=== PATIENT | female | born 1945 | race Caucasian/White ===

== ENCOUNTER 2023-06-03 13:38 | Inpatient (IN) | payer MEDICARE, SELFPAY ==
[2023-05-31 15:01] VITALS: BP 150/66
[2023-05-31 15:09] VITALS: BMI 16.3
[2023-05-31 15:45] LABS: % Basophils 0.4 % (0-2); % Eosinophils 0.9 % (0-6); % Immature Granulocytes 0.4 % (0-0.5); % Lymphocytes 15.5 % (20.5-51.1); % Monocytes 4.6 % (1.7-9.3); % Neutrophils 78.2 % (42.2-75.2); Absolute Eosinophils 0.1 10^3/uL (0-0.7); Absolute Lymphocytes 1.6 10^3/uL (1.2-3.4); Absolute Monocytes 0.5 10^3/uL (0.1-0.6); Absolute Neutrophils 8.2 10^3/uL (1.4-6.5); Hemoglobin 13.5 g/dL (12.0-16.0); Mean Corp Hgb Conc. 31.4 g/dL (33.0-37.0); Mean Corpuscular Hgb 30.3 pg (27.0-31.0); Mean Corpuscular Volume 96.6 fL (81.0-99.0); Mean Platelet Volume 10.2 fL (7.4-10.4); Nucleated Red Blood Cells % 0 %; Platelet Count 271 10^3/uL (130-400); Red Blood Cell Count 4.45 10^6/uL (4.20-5.40); Red Cell Dist. Width 13.2 % (11.5-14.5); White Blood Cell Count 10.4 10^3/uL (4.8-10.8)
[2023-05-31 15:48] LABS: ALT (SGPT) 20 U/L (0-35); AST (SGOT) 34 U/L (14-36); Acetaminophen < 10 ug/ml (10-30); Albumin 4.8 g/dl (3.5-5.0); Alkaline Phosphatase 78 U/L (38-126); Blood Urea Nitrogen 14 mg/dl (7-17); Calcium 8.9 mg/dl (8.4-10.2); Carbon Dioxide 30 mmol/L (22-30); Chloride 103 mmol/L (98-107); Estimated Creatinine Clearance 55 ml/min; Glucose 107 mg/dl (70-99); Salicylate < 1.0 mg/dl (2.0-20.0); Total Bilirubin 0.5 mg/dl (0.2-1.3); Total Protein 8.2 g/dl (6.3-8.2); eGFR > 60.00
[2023-05-31 15:58] LABS: Potassium 4.5 mmol/L (3.5-5.1); Sodium 138 mmol/L (135-145)
--- NOTE | 2023-05-31 16:17 | ED.GENMED ---
History of Present Illness
General
Chief Complaint: Dizziness
Source: patient and family
Exam Limitations: none
Time Seen by Provider: 05/31/23 16:04
Nursing documentation reviewed up to this point in time: agreed with
Travel History
Have you had any contact with someone who has COVID-19?: No
Do you have any symptoms of coronavirus? Fever > 100 degrees, chills, cough, shortness of breath, sore throat, loss of taste or smell, muscle aches, or headache?: No
History of Present Illness
History of Present Illness:
78-year-old female presents emergency department due to dizziness. She felt dizzy yesterday, and usually feels dizzy in the morning. She has had this intermittently over the past several months, but it has been worse for the past 1 to 2 days. She
came to crisis today because she made a comment that she wanted to end it all. She denies any thoughts of suicide at this time.
Past History
Past History
ED Past Medical History: COPD and Other (scleroderma, alphatripsen deficiency)
ED Past Surgical History: Other (Biopsy, eye surgeries)
Social History
Tobacco: Non-smoker
Alcohol: None
Drug: None
Personal:
Living: with family
Review of Systems
Review of Systems
Allergies reviewed?: Yes
All Other Systems: Not applicable
Constitutional: Reports no symptoms
EENT: Reports no symptoms
Respiratory: Reports no symptoms
Cardiac: Reports no symptoms
ABD/GI: Reports no symptoms
: Reports no symptoms
Musculoskeletal: Reports no symptoms
Skin: Reports no symptoms
Neurological: Reports dizzy
Endocrine: Reports no symptoms
Hematologic/Lymphatic: Reports no symptoms
Psychiatric: Denies suicidal (Denies)
Phy Exam
Physical Exam
Physical Exam:
Physical Exam
General: no apparent distress, not acutely ill
Neck: supple. no meningeal signs. normal posterior pharynx
Heart: s1/s2 regular rate and rhythm, no murmur. equal radial
pulses.
HEENT: Pupils equal round reactive to light, EOMI
Lungs: no acute respiratory distress. clear bilaterally
Abdomen: normal bowel sounds. not tender. no CVAT
Neuro: alert and oriented. no focal neurological deficits cranial nerves II through XII intact
Skin: no rash
Psychiatric: well kept. interactive and cooperative
Extremities: no edema. no calf tenderness. negative homans. good distal pulses
Scores
NIH Stroke Score
Level of Consciousness: 0 - Alert
LOC Questions: 0-Answers both correctly
LOC Commands: 0-Performs both correctly
Best Horizontal Gaze: 0-Normal
Visual [place]: 0=Normal, no visual loss
Facial Palsy: 0=Normal, symmetrical
Motor - Right Arm: 0=No drift 10 seconds
Motor - Left Arm: 0=No drift 10 seconds
Motor - Right Le-No drift 5 seconds
Motor - Left Le-No drift 5 seconds
Limb Ataxia: 0-Absent
Sensation: 0-Normal
Best Language: 0-No aphasia
Dysarthria: 0-Normal
Extinction and Inattention: 0-No abnormality
Total Score:: 0
Course
Orders/Labs/Results
Orders:
Orders
05/31/23 15:14
Acetaminophen Urgent
Complete Blood Count/With Diff Urgent
Comprehensive Metabolic Panel Urgent
Salicylate Urgent
05/31/23 16:16
Electrocardiogram (*1) Urgent
Reason for Study: Vertigo / Dizzy
EKG- Treatment ONCE
05/31/23 16:17
CT Head W/o Iv Contrast Urgent
Comment:
Reason For Exam: dizziness
05/31/23 20:21
Admit/Transfer Patient As Directed
Co-Sign Provider:
Level of Care: Observation services
Assign to:: Telemetry
Physician / Group: hussein gunderson
Diagnosis: acute dizziness concer vertigo vs cva tia
Reason for Telemetry: CVA/TIA
Date to Stop Telemetry: 06/03/23
Time to Stop Telemetry: 11:00
Reason for Hospitalization: acute dizziness concer vertigo vs cva tia
Code Status As Directed
Resuscitation Status: Full Code
Meclizine [Antivert] 12.5 mg PO Q8HPRN PRN
06/03/23 11:00
DC Protocol for Telemetry ONCE
Abnormal Lab Results
05/31/23
15:14
MCHC 31.4 L g/dL
(33.0-37.0)
Absolute Neuts (auto) 8.2 H 10^3/uL
(1.4-6.5)
Neutrophils % 78.2 H %
(42.2-75.2)
Lymphocytes % 15.5 L %
(20.5-51.1)
Glucose 107 H mg/dl
(70-99)
Salicylates < 1.0 L mg/dl
(2.0-20.0)
Acetaminophen < 10 L ug/ml
(10-30)
05/31/23 15:14
05/31/23 15:14
Vital Signs
Initial and Last Documented VS:
Initial Vital Signs
Temp Pulse Resp BP Pulse Ox
98.0 F 78 18 150/66 97
05/31/23 15:01 05/31/23 15:01 05/31/23 15:01 05/31/23 15:01 05/31/23 15:01
Last Documented Vital Signs
Temp Pulse Resp BP Pulse Ox
98.0 F 78 18 150/66 97
05/31/23 15:01 05/31/23 15:01 05/31/23 15:01 05/31/23 15:01 05/31/23 15:01
MDM/Problems Addressed
Differential Diagnosis Includes:
CVA, vertigo
MDM/Problems Addressed:
78-year-old female with dizziness, CT changes concerning for subacute infarct, discussed with neurology who recommends admission.
Chronic conditions affecting care:
Scleroderma
Acute Exacerbation and/or Progression of Chronic Illness:
Scleroderma
*Radiology
Radiology exam reviewed: radiology read reviewed (CT head shows decreased attenuation in anterior frontal right lobe)
*Pulse Oximetry
Patient hypoxic: no
*EKG
Interpreted by ED Provider?: Yes
EKG Intrepretation Date: 05/31/23
EKG Intrepretation Time: 16:34
Interpretation: normal
Comparison EKG: no changes
Heart Rate: 77
Rate: normal
Rhythm: sinus
[place]: normal axis
Interval: normal interval
QRS Pattern: normal QRS
Ischemia: no ischemia
*Automobile Parts Assembler Interpretation
Rate: normal
Interpretation: normal
Heart Rate: 78
Rhythm: sinus
*Critical Care Note
Total Time (30-74mins, 75-104mins- exclusive of procedures): Not Applicable
ED Attending Note
-
Portions of this chart may have been created with voice recognition software.� Occasional wrong word or��sound alike� substitutions may have occurred due to the inherent limitations of voice recognition software.
Discharge Plan
Departure
Patient Disposition: Admit
Date of Disposition: 05/31/23
Time of Disposition: 19:39
Admit to: Telemetry
Presentation/result/management discussed w/ accepting MD/DO: Hospitalist
Patient with high blood pressure during this ER visit?: Yes
Condition: Fair
Discharge Problem:
CVA (cerebral vascular accident)
Prescriptions:
No Action
B Complex Tablet Extended Release
1 tab PO DAILY
ondansetron HCl 4 mg tablet
4 mg PO DAILY PRN (Reason: nausea)
aspirin 81 mg Tablet,Delayed Release (Dr/Ec)
81 mg PO DAILY
ascorbic acid (vitamin C) [Vitamin C] 500 mg Tablet
500 mg PO DAILY
ibandronate 150 mg tablet
150 mg PO MONTHLY
cholecalciferol (vitamin D3) [Vitamin D3] 50 mcg (2,000 unit) Tablet
50 mcg PO DAILY
Referrals:
Sindhu Crouch MD [Family Provider] -
Interventions
Interventions:
*Risk Screen - Suicide Last Done: 05/31/23 15:01
*General Assessment Last Done: 05/31/23 15:01
*Neglect/Abuse Screening Last Done: 05/31/23 15:01
ED- Fall Risk Assessment Last Done: 05/31/23 15:09
*ED COVID-19 Vaccine History Last Done: 05/31/23 15:01
ED- Neurological Assessment Last Done: 05/31/23 15:10
ED Swallowing Screen Last Done: 05/31/23 16:00
--- NOTE | 2023-05-31 19:49 | HPS.HSE ---
Addendum entered and electronically signed by Anthony Abbott DO 05/31/23 21:04:
Patient seen and examined independently. Agree with findings and plan as set forth by KAJAL Brewer.
Patient is a 78y F with PMH significant for scleroderma, COPD and apparent dementia who presented to the ED with her for evaluation of dizziness and nausea. had called PCP office earlier today for Zofran rx for symptoms. Patient
has a prior h/o similar symptoms about 6 months ago that improved with meclizine.
At the time of my examination, patient cannot recall or state why she is in the hospital. She denies any dizziness. She states that she has had occasional nausea, but 'not that bad'.
She has ambulated here in the ED without apparent difficulty.
A CT scan was done which shows mild asymmetry in the frontal lobes concerning for possible subacute CVA.
Ass:
Dizziness / Vertigo
Abnormal CT Head
Dysconjugate Gaze (chronic)
COPD without Acute Exacerbation
Scleroderma
Senile Dementia
Depression
Plan:
Observe overnight for further evaluation and treatment.
PT / OT evaluations in the AM.
Meclizine PRN for now - should any symptoms recur.
CT scan noted - but abnormality is not consistent with any presenting symptoms.
Check MRI in AM.
Neuro evaluation.
ASA daily for now.
? if vision abnormality / dysconjugate gaze could be contributing to her issues - even though it is chronic.
Original Note:
Family Physician
-
Family Physician: Sindhu Crouch MD
Chief Complaint
-
Dizziness, depression in the a.m.
History of Present Illness
78-year-old female complaining of dizziness that has been worse over the past 1 to 2 days especially in the morning. Her states she woke up yesterday a.m. was complaining she was dizzy with the room spinning he gave her a Zofran and she
fell asleep. This evening while walking to have dinner she had the same episode he gave her an additional Zofran which did not seem to help. She reports she feels depressed in the a.m.'s but seems to improve in the afternoon. Her states
she had this 6 months ago and took a white pill which seemed to help. He believes it was meclizine. Patient denies any recent cold cough runny nose sneezing, sinus pressure, ear pressure, sore throat, chest pain, palpitations, shortness breath,
cough, abdominal pain, nausea, vomiting, diarrhea, urinary symptoms.
She is past medical history of COPD, scleroderma, alpha trypsin deficiency, chronic memory impairment, vertigo
Medical History
Past Medical History
Past Medical History: Reports Other
Additional Past Medical History:
COPD, scleroderma, alpha trypsin deficiency, chronic memory impairment, vertigo
Past Surgical History: Reports Other
Additional Past Surgical History:
Tonsillectomy, right knee arthroscopy
Social History
Tobacco: Non-smoker
Alcohol: None
Drug: None
Personal:
Living: With Family ( Oliverio)
Employment: Retired
Family History
Family History: Unable to Obtain
Allergies / Home Medications
Allergies reflects when Allergies were last updated in [facility] [employer] [facility] [employer].
Home Medications with original date entered in [employer] [facility] [employer] [facility] [employer]
Allergy/Medication List:
Allergies
Allergy/AdvReac Type Severity Reaction Status Date / Time
No Known Allergies Allergy Verified 12/23/19 11:42
Home Medications
ascorbic acid (vitamin C) 500 mg tablet (Vitamin C) 500 mg PO DAILY 05/31/23
aspirin 81 mg tablet,delayed release 81 mg PO DAILY 05/31/23
cholecalciferol (vitamin D3) 50 mcg (2,000 unit) tablet (Vitamin D3) 50 mcg PO DAILY 05/31/23
ibandronate 150 mg tablet 150 mg PO MONTHLY 05/31/23
ondansetron HCl 4 mg tablet 4 mg PO DAILY PRN nausea 05/31/23
vitamin B complex 1 tab PO DAILY 05/31/23
Review of Systems
-
History Source: Patient and Family ( Oliverio)
A 12 point ROS was completed and negative except as noted: Yes
Constitutional: Denies Fever or Fatigue
EENT: Denies Sore Throat or Runny Nose
Respiratory: Denies Cough or Trouble Breathing
Cardiac: Denies Chest Pain, Diaphoresis, Palpitations or Syncope
: Denies Dysuria, Frequency, Flank Pain, Incontinence or Difficulty Voiding
Musculoskeletal: Denies Joint Pain or Edema
Skin: Denies Itching or Rash
Neurological: Reports Dizzy; Denies Headache or Weakness
Endocrine: Reports No Symptoms
Hematologic/Lymphatic: Reports No Symptoms
Psych: Reports Calm
Physical Exam
Vital Signs
Vital Signs
Temp Pulse Resp BP Pulse Ox
98.0 F 78 18 150/66 97
05/31/23 15:01 05/31/23 15:01 05/31/23 15:01 05/31/23 15:01 05/31/23 15:01
Physical Exam
General: Comfortable and Conversant; No Pain, Fever or Chills
HEENT: NormoCephalic, Anicteric, PERRLA and [place] Conjunctivae
Respiratory: Clear; No Wheezes, Rales or Rhonchi
Cardiac: S1/S2 and Regular Rhythm; No Murmur, Rub, Gallop or Peripheral Edema
Breast: Deferred by me
GI: Soft, Non Tender, Non Distended, Normal Bowel Sounds and No Hepatosplenomegaly
Rectal: Deferred by Provider
Genito-urinary: Deferred by me
Musculoskeletal: No Clubbing, No Cyanosis and No Edema
Skin: Warm and Dry; No Rash
Neuro: Awake, Alert, Oriented (To name and confused about dates, time of events, place states she has memory impairment), Cranial Nerves Intact and No Sensory Deficits; No Slurred Speech, Facial Droop or Tremors
Psych: Calm
Laboratory Results
-
05/31/23 15:14
05/31/23 15:14
Laboratory Results
Total Bilirubin 0.5 mg/dl (0.2-1.3) 05/31/23 15:14
AST 34 U/L (14-36) 05/31/23 15:14
ALT 20 U/L (0-35) 05/31/23 15:14
Alkaline Phosphatase 78 U/L (38-126) 05/31/23 15:14
Impression/Plan
-
Impression/plan:
Observation telemetry
#Acute dizziness likely vertigo concern for TIA CVA
-Consult neuro
-MRI brain
-Continue aspirin 81 mg daily pt takes daily
-Check lipid profile, HgbA1c
-Meclizine 25 mg as needed dizziness 3 times daily
-Consult PT/OT/case management
CT head:
1. Asymmetric decreased attenuation in the anterior right frontal lobe age indeterminant subacute infarct cannot be excluded
2. Moderate diffuse volume loss moderate leukoaraiosis
EKG: NSR 83 bpm, QTc 415 MS
#Chronic memory impairment�undiagnosed�moderate
-Patient oriented to name and place extremely forgetful cannot recall events of today
#New Depression
Symptoms seem to occur in the a.m.
-No current suicidal ideation
-Recommend follow-up with PCP, has crisis number
-Will add Remeron 15 mg at bedtime
#COPD�no acute exacerbation
- no current med
#Scleroderma hx
#Hx alpha trypsin deficiency
#Osteoporosis
Continue ibandronate monthly, vitamin D3 daily
DVT prophylaxis
SCDs
Full code per patient with Oliverio at bedside
[2023-05-31 20:42] VITALS: BP 144/82
[2023-05-31 21:48] VITALS: BP 183/73; BMI 16.6
[2023-05-31 22:40] VITALS: BP 150/70
[2023-05-31 23:10] VITALS: BP 146/70
[2023-06-01] VITALS (8 sets, daily range): BP systolic 117–164; BP diastolic 49–79; PULSE 73–77; O2SAT 98–99; BMI 16.6
--- NOTE | 2023-06-01 06:09 | PTCARENOTE ---
Late entry: patient received to floor, on tele box #10. Oriented to room and floor routines, adm assessment complete, call rose within reach. NIH score 0.
[2023-06-01 06:47] LABS: % Basophils 0.4 % (0-2); % Eosinophils 3.2 % (0-6); % Immature Granulocytes 0.3 % (0-0.5); % Lymphocytes 33.7 % (20.5-51.1); % Monocytes 8.1 % (1.7-9.3); % Neutrophils 54.3 % (42.2-75.2); Absolute Eosinophils 0.2 10^3/uL (0-0.7); Absolute Lymphocytes 2.4 10^3/uL (1.2-3.4); Absolute Monocytes 0.6 10^3/uL (0.1-0.6); Absolute Neutrophils 3.9 10^3/uL (1.4-6.5); Hematocrit 37.2 % (37.0-47.0); Mean Corp Hgb Conc. 32.3 g/dL (33.0-37.0); Mean Corpuscular Hgb 30.1 pg (27.0-31.0); Mean Corpuscular Volume 93.2 fL (81.0-99.0); Mean Platelet Volume 10.4 fL (7.4-10.4); Nucleated Red Blood Cells % 0 %; Platelet Count 245 10^3/uL (130-400); Red Blood Cell Count 3.99 10^6/uL (4.20-5.40); Red Cell Dist. Width 13.1 % (11.5-14.5); White Blood Cell Count 7.2 10^3/uL (4.8-10.8)
[2023-06-01 07:18] LABS: Blood Urea Nitrogen 14 mg/dl (7-17); Calcium 8.7 mg/dl (8.4-10.2); Carbon Dioxide 30 mmol/L (22-30); Chloride 102 mmol/L (98-107); Estimated Creatinine Clearance 54 ml/min; Glucose 86 mg/dl (70-99); HDL Cholesterol 58 mg/dl; LDL Cholesterol, Calculated 108 mg/dl; Potassium 3.9 mmol/L (3.5-5.1); Sodium 140 mmol/L (135-145); Total Cholesterol 182 mg/dl (50-199); Triglyceride 80 mg/dl (10-149); Very Low Density Lipoprotein 16 mg/dl (0-30); eGFR > 60.00
[2023-06-01 07:33] LABS: VerifyNow Aspirin 493 ARU
--- NOTE | 2023-06-01 07:51 | CON.NEURO ---
Consultation
Order
Date of Consultation: 06/01/23
Reason for Consult: Stroke
CC: dizziness
HPI: This is a 78-year-old woman who presented to [facility] on [facility], [facility]23 with dizziness and nausea. Ms. Mayo endorses intermittent dizziness (difficult to differentiate vertigo or lightheadedness based described) with associated
nausea that she has been on ondansetron for. No reports of headache, change in vision, motor or sensory deficits
Mr. Mayo states that his has been forgetful. She has never driven or leaned how to use computer or cell phone. She is able to cook, manage her finances and medication administration with no concerns. She was reportedly tested negative for
HTT gene.
there is a family history of Elana's disease
Endorses she reports that her dizziness has resolved since her arrival at the hospital, and she is no longer experiencing nausea. Ms. Oliveira has a family history of Tyrrell's disease, but she has been tested and does not carry the gene. She denies
any difficulties with memory or mathematics but admits to occasionally having trouble finding the right words.
The patient has a history of a left lazy eye since and denies any recent headaches. She has seen multiple eye doctors but has not undergone any eye surgeries or had cataracts. Ms. Oliveira has experienced a fall in the past due to knee issues,
which have worsened over the past year.
ER VS: 150/66-183/73, 78, afebrile.
EKG�normal sinus rhythm, QTc�[address] head�questionable right frontal lobe infarct, prominent bifrontal atrophy, and moderate leukoaraiosis.
PDMP:none
Labs: Glucose�107, normal WBCs, sodium, creatinine, LDL�108,
PMH: scleroderma, Alpha-1 antitrypsin deficiency/COPD, osteoporosis, vitamin D deficiency,
PSH: R TKA, tonsillectomy
SH: , retired, non-smoker,
FH: Elana disease in maternal uncles
All:NKDA
ROS:Constitutional: Negative. Negative for chills, fever and unexpected weight change.
HENT: Negative for ear pain, hearing loss, tinnitus and trouble swallowing.
Eyes: Negative. Negative for photophobia, pain and visual disturbance.
Respiratory: Negative for cough, choking and shortness of breath.
Cardiovascular: Negative for chest pain, palpitations and leg swelling.
Gastrointestinal: Negative for abdominal pain and vomiting.
Endocrine: Negative. Negative for cold intolerance.
Genitourinary: Negative for dysuria, flank pain and urgency.
Musculoskeletal: Positive for right knee pain.
Skin: Negative for rash.
Allergic/Immunologic: Negative. Negative for immunocompromised state.
Neurological: Positive for short-term memory change, trouble finding the right words.
Psychiatric/Behavioral: Negative for behavioral problems, confusion and hallucinations.
General: Well developed. In no acute distress.
Cardio: Regular rate and rhythm without murmur. Extremities are without cyanosis or edema.
Neuro:
Mental Status: Alert, oriented to person, place, month, year. Mild expressive aphasia. Normal attention and recall. Good fund of knowledge. Follows complex requests across the midline. Comprehension, naming, and repetition intact.
Cranial Nerves: L exocoria on primary gaze. Pupils are equally round and reactive to light. EOMs full, except for L adduction. Visual sorto full to confrontation. No ptosis. No nystagmus. V1-V3 intact to light touch and pinprick bilaterally,
symmetric. Face symmetric. Impaired hearing AU. The palate elevated well. SCMs and traps 5/5. Tongue midline. No dysarthria.
Motor: Normal bulk and tone. No pronator or arm drift. Strength 5/5 throughout. No clonus.
Reflexes: 3+ throughout the upper extremities and knees. Plantar responses flexor bilaterally. As 2 g bilaterally.
Sensory: Normal vibration at the toes
Coordination: No dysmetria or tremor.
Gait: deferred
Assessment and Plan:
I. Questionable right frontal lobe infarct
II. MCI with bifrontal atrophy.
III. Dizziness
-Fall precautions
-Please obtain orthostatic vital signs
-PT
-Please check vitamin B12, TFTs,
-Meclizine 25 mg every 8 hours as needed for
-Brain MRI without maritza
I personally reviewed all radiology and labs along with past medical records pertinent to current medical problems. Total time spent in patient care is 60 minutes.
Thank you for allowing us to participate in the care of this patient. We will continue to follow. Please do not hesitate to contact us with any questions or concerns.
Subjective/Objective
Subjective Data
Date of Service: June 01, 2023
Objective Data
Vital Signs
Temp Pulse Resp BP Pulse Ox
36.6 C 77 16 154/72 100
06/01/23 02:59 06/01/23 02:59 06/01/23 02:59 06/01/23 02:59 06/01/23 02:59
Lab Results
06/01/23 06:25
06/01/23 06:25
Sodium 140 mmol/L (135-145) 06/01/23 06:25
Potassium 3.9 mmol/L (3.5-5.1) 06/01/23 06:25
BUN 14 mg/dl (7-17) 06/01/23 06:25
Glucose 86 mg/dl (70-99) 06/01/23 06:25
Calcium 8.7 mg/dl (8.4-10.2) 06/01/23 06:25
LDL Cholesterol, Calc 108 mg/dl 06/01/23 06:25
Patient Allergies
No Known Allergies Allergy (Verified 12/23/19 11:42)
Medications
-
Active Medications
Generic Name Dose Route Start Last Admin
Trade Name Freq PRN Reason Stop Dose Admin
Acetaminophen 650 mg 05/31/23 21:36
Acetaminophen 650 Mg Rectal Suppository RECTAL 06/28/23 21:35
Q4HPRN PRN
WEIR, mild pain, or temp >100.4F
Acetaminophen 650 mg 05/31/23 21:36
Acetaminophen 325 Mg Tablet PO 06/28/23 21:35
Q4HPRN PRN
WEIR, mild pain, or temp >100.4F
Aspirin 81 mg 06/01/23 08:00
Aspirin 81 Mg (Enteric Coated) Tablet PO 06/29/23 07:59
DAILY RUFINA
Cholecalciferol 50 mcg 06/01/23 08:00
Cholecalciferol (Vitamin D3) 50 Mcg Tablet (2,000 Units) PO 06/29/23 07:59
DAILY RUFINA
Meclizine HCl 12.5 mg 05/31/23 20:21
Meclizine 12.5 Mg Tablet PO 06/28/23 20:20
Q8HPRN PRN
dizziness
Ondansetron HCl 4 mg 05/31/23 21:36
Ondansetron 4 Mg Tablet PO 06/28/23 21:35
DAILYPRN PRN
nausea
Vitamin B Complex/Vitamin C 1 caplet 06/01/23 08:00
Vitamin B Complex With Vitamin C Caplet PO 06/29/23 07:59
DAILY RUFINA
Home Medications
Medication Instructions Recorded
ascorbic acid (vitamin C) 500 mg 500 mg PO DAILY 05/31/23
tablet (Vitamin C)
aspirin 81 mg tablet,delayed 81 mg PO DAILY 05/31/23
release
cholecalciferol (vitamin D3) 50 50 mcg PO DAILY 05/31/23
mcg (2,000 unit) tablet (Vitamin
D3)
ibandronate 150 mg tablet 150 mg PO MONTHLY 05/31/23
ondansetron HCl 4 mg tablet 4 mg PO DAILY PRN nausea 05/31/23
vitamin B complex 1 tab PO DAILY 05/31/23
[2023-06-01] MEDS: B COMPLEX w/VITAMIN C 1 CAPLET PO (08:10)
[2023-06-01] MEDS: ASPIR LOW (ENTERIC COATED) 81 MG PO (08:10)
[2023-06-01] MEDS: VITAMIN D3 (cholecalciferol) 50 MCG PO (08:10)
[2023-06-01 08:53] LABS: Glycohemoglobin (HgbA1c) 5.4 % (4.0-5.6)
--- NOTE | 2023-06-01 09:53 | W.PN.HOSP.TC ---
Today's Communication/Plan
-
.
Assessment / Plan
Assessment / Plan
Physical Exam
General: Comfortable and Conversant; No Pain, Fever or Chills
HEENT: Normocephalic, Anicteric, PERRLA and [place] Conjunctivae
Respiratory: Clear; No Wheezes, Rales or Rhonchi
Cardiac: S1/S2
Breast: Deferred by me
GI: Soft, Non Tender, Non Distended,
Rectal: Deferred by Provider
Genito-urinary: NO Chin
Musculoskeletal: No Clubbing, No Cyanosis and No Edema
Skin: Warm and Dry; No Rash
Neuro: Awake, Alert, Oriented (To name and confused about dates, time of events, place states she has memory impairment), forgetful.
Psych: Calm
#Acute dizziness likely vertigo concern for TIA CVA
-Consult neuro
-MRI brain
-Continue aspirin 81 mg daily pt takes daily
-Lipid profile showed total cholesterol 182, LDL 108, HDL 58, triglyceride 80. HgbA1c 5.4
-Meclizine 25 mg as needed dizziness 3 times daily
-Consult PT/OT/case management
� � � � ��CT head:
� � � � � 1.� Asymmetric decreased attenuation in the anterior right frontal lobe age indeterminant subacute infarct cannot be excluded
� � � � � 2.� Moderate diffuse volume loss moderate leukoaraiosis
�� � � ���EKG:�NSR 83 bpm, QTc 415 MS
#Chronic memory impairment�undiagnosed�moderate
-Patient oriented to name and place extremely forgetful cannot recall events of today
#New Depression
Symptoms seem to occur in the a.m.
-No current suicidal ideation
-Recommend follow-up with PCP, has crisis number
#COPD�no acute exacerbation
�- no current med
#Scleroderma hx
#Hx alpha trypsin deficiency
#Osteoporosis
Continue ibandronate monthly, vitamin D3 daily
DVT prophylaxis
SCDs
�Total time spent to see the patient, examine the patient on the floor, review data and lab results, discuss treatment plan with the patient, nursing staff around 55 minutes
Anticipated Discharge: Within 24 hours
Subjective/Interval History
-
Date of Service: June 01, 2023
No pain issues
no fevers
less dizzy
Objective Data
-
Labs:
Laboratory Results
06/01/23
06:25
WBC 7.2
Hgb 12.0
Hct 37.2
Plt Count 245
Sodium 140
Potassium 3.9
Chloride 102
Carbon Dioxide 30
BUN 14
Creatinine 0.6
Glucose 86
Calcium 8.7
Vital Signs:
Vital Signs
Temp Pulse Resp BP Pulse Ox
98.1 F 77 18 164/79 99
06/01/23 07:00 06/01/23 07:00 06/01/23 07:00 06/01/23 07:00 06/01/23 07:00
I&O
05/31/23 06/01/23 06/02/23
06:59 06:59 06:59
Intake Total 240 / 240
Balance 240 / 240
--- NOTE | 2023-06-01 10:01 | PTOTSP ---
Speech Therapy
Presentation: Patient was partially oriented and willing to participate. Patient's speech and language appeared to be WNL. Senile dementia noted.
Swallowing Function: LIQUIFIED NATURAL GAS SPECIALIST observed patient with several bites of cracker and sips of thin liquids in which patient appeared to tolerate as she did not exhibit any overt clinical s/sx of aspiration or difficulty with mastication. Patient denied any
dysphagia complaints.
Per RN, patient tolerated medications whole with thin liquids.
Recommendations:
1) Regular consistency solids and thin liquids
2) Standard aspiration precautions
3) Medications as tolerated
Plan: LIQUIFIED NATURAL GAS SPECIALIST will sign off at this time as patient seems to be functioning at her baseline function. Please re-consult if clinically indicated.
--- NOTE | 2023-06-02 02:54 | PTCARENOTE ---
Pt removed tele monitor and refuses to let staff to place back on. CUSTOMER SERVICE REPRESENTATIVE TEACHER BM aware, assessed need via flow sheet, tele monitor discontinued.
[2023-06-02 06:58] LABS: Hematocrit 36.8 % (37.0-47.0); Mean Corp Hgb Conc. 32.6 g/dL (33.0-37.0); Mean Corpuscular Hgb 30.1 pg (27.0-31.0); Mean Corpuscular Volume 92.2 fL (81.0-99.0); Mean Platelet Volume 10.4 fL (7.4-10.4); Platelet Count 239 10^3/uL (130-400); Red Blood Cell Count 3.99 10^6/uL (4.20-5.40); White Blood Cell Count 7.9 10^3/uL (4.8-10.8)
[2023-06-02 07:06] LABS: Blood Urea Nitrogen 21 mg/dl (7-17); Calcium 8.8 mg/dl (8.4-10.2); Carbon Dioxide 29 mmol/L (22-30); Chloride 104 mmol/L (98-107); Estimated Creatinine Clearance 47 ml/min; Glucose 92 mg/dl (70-99); Potassium 4.5 mmol/L (3.5-5.1); Sodium 141 mmol/L (135-145); eGFR > 60.00
[2023-06-02] MEDS: B COMPLEX w/VITAMIN C 1 CAPLET PO (07:37)
[2023-06-02] MEDS: VITAMIN D3 (cholecalciferol) 50 MCG PO (07:37)
[2023-06-02] MEDS: ASPIR LOW (ENTERIC COATED) 81 MG PO (07:37)
[2023-06-02 08:20] VITALS: BP 126/76; BP 127/77; BP 135/58; PULSE 75; PULSE 89; PULSE 97
[2023-06-02 11:11] VITALS: BP 134/59
--- NOTE | 2023-06-02 11:40 | W.PN.NEURO.1 ---
Today's Communication / Plan
-
.
Subjective/Objective
Subjective Data
Date of Service: June 02, 2023
24-hour events: Normotensive, afebrile. Ms. Rosario reports no complaints.
Brain MRI wo maritza(06/02/2023)-right frontal edema with associated with the area of restricted diffusion which do not have a standard ADC image response. Moderate diffuse volume loss
Carotid Doppler ultrasound�no evidence of hemodynamically significant stenosis.
LDL 108, hemoglobin A1c�5.4
PMH: scleroderma, Alpha-1 antitrypsin deficiency/COPD, osteoporosis, vitamin D deficiency,
PSH: R TKA, tonsillectomy
SH: , retired, non-smoker,
FH: [place] disease in maternal uncles
All:NKDA
ROS:Constitutional: Negative. Negative for chills, fever and unexpected weight change.
HENT: Negative for ear pain, hearing loss, tinnitus and trouble swallowing.
Eyes: Negative. Negative for photophobia, pain and visual disturbance.
Respiratory: Negative for cough, choking and shortness of breath.
Cardiovascular: Negative for chest pain, palpitations and leg swelling.
Gastrointestinal: Negative for abdominal pain and vomiting.
Endocrine: Negative. Negative for cold intolerance.
Genitourinary: Negative for dysuria, flank pain and urgency.
Musculoskeletal: Positive for right knee pain.
Skin: Negative for rash.
Allergic/Immunologic: Negative. Negative for immunocompromised state.
Neurological: Positive for short-term memory change, trouble finding the right words.
Psychiatric/Behavioral: Negative for behavioral problems, confusion and hallucinations.
�
�
General: Well developed. In no acute distress.
Cardio: Regular rate and rhythm without murmur. Extremities are without cyanosis or edema.
Neuro:
Mental Status: Alert, oriented to person, place, month, year.� Mild expressive aphasia.� Normal attention and recall.� Good fund of knowledge. Follows complex requests across the midline.� Comprehension, naming, and repetition intact.
Cranial Nerves:� L exocoria on primary gaze. Pupils are equally round and reactive to light.� EOMs full, except for L adduction.� Visual sorto full to confrontation.� No ptosis.� No nystagmus.� V1-V3 intact to light touch and pinprick bilaterally,
symmetric.� Face symmetric.� Impaired hearing AU.� The palate elevated well.� SCMs and traps 5/5.� Tongue midline.� No dysarthria.
Motor:� � � � Normal bulk and tone.� No pronator or arm drift.� Strength 5/5 throughout. No clonus.
Reflexes: � � � � � � 3+ throughout the upper extremities and knees. � Plantar responses flexor bilaterally.� As 2 g bilaterally.
Sensory: � � Normal vibration at the toes
Coordination: No dysmetria or tremor.�
Gait: � � � � � deferred
Assessment and Plan:
�
�I. Right frontal edema with diffusion restriction. Rule out MANAGER CRISIS neoplasm.
II.� MCI with bifrontal atrophy.
III.� Multifactorial encephalopathy
-Fall precautions
-Continue aspirin 81 mg QD
-Brain MRI with maritza
-Please check vitamin B12, TFTs, ESR/CRP
-DVT prophylaxis
I personally reviewed all radiology and labs along with past medical records pertinent to current medical problems. Total time spent in patient care is 35 minutes.
�
Thank you for allowing us to participate in the care of this patient. We will continue to follow. Please do not hesitate to contact us with any questions or concerns
Objective Data
Vital Signs
Temp Pulse Resp BP Pulse Ox
36.6 C 78 18 134/59 98
06/02/23 11:11 06/02/23 11:11 06/02/23 11:11 06/02/23 11:11 06/02/23 11:11
Lab Results
06/02/23 06:32
06/02/23 06:32
Sodium 141 mmol/L (135-145) 06/02/23 06:32
Potassium 4.5 mmol/L (3.5-5.1) 06/02/23 06:32
BUN 21 mg/dl (7-17) H 06/02/23 06:32
Glucose 92 mg/dl (70-99) 06/02/23 06:32
Calcium 8.8 mg/dl (8.4-10.2) 06/02/23 06:32
LDL Cholesterol, Calc 108 mg/dl 06/01/23 06:25
Patient Allergies
No Known Allergies Allergy (Verified 12/23/19 11:42)
[2023-06-02] MEDS: PLAVIX 75 MG PO (12:10)
[2023-06-02 12:54] LABS: C-Reactive Protein < 5.00 mg/L (0.0-10.00)
[2023-06-02 13:01] LABS: TSH Reflex To Free T4 1.62 uIU/ml (0.47-4.68)
[2023-06-02 13:05] LABS: Erythrocyte Sed Rate 18 mm/hour (0-20)
[2023-06-02 13:20] LABS: Vitamin B12 641 pg/ml (239-931)
--- NOTE | 2023-06-02 14:29 | W.PN.HOSP.TC ---
Today's Communication/Plan
-
likely dc in am
Assessment / Plan
Assessment / Plan
Physical Exam
General: Comfortable and Conversant; No Pain, Fever or Chills
HEENT: Normocephalic, Anicteric, PERRLA and [place] Conjunctivae
Respiratory: Clear; No Wheezes, Rales or Rhonchi
Cardiac: S1/S2
Breast: no lump/ tenderness or nipple discharge
GI: Soft, Non Tender, Non Distended,
Rectal: Deferred by Provider
Genito-urinary: NO Chin
Musculoskeletal: No Clubbing, No Cyanosis and No Edema
Skin: Warm and Dry; No Rash
Neuro: Awake, Alert, Oriented (To name and confused about dates, time of events, place states she has memory impairment), she followed commands.
Psych: Calm, pleasant.
#Acute dizziness likely vertigo concern for TIA CVA
- She denies dizziness.
-MRI brain was reviewed with radiologist, will repeat with contrast
-Continue aspirin 81 mg daily pt takes daily
-Lipid profile showed total cholesterol 182, LDL 108, HDL 58, triglyceride 80. HgbA1c 5.4
-Meclizine 25 mg as needed dizziness 3 times daily
-Consult PT/OT/case management
� � � � ��CT head:
� � � � � 1.� Asymmetric decreased attenuation in the anterior right frontal lobe age indeterminant subacute infarct cannot be excluded
� � � � � 2.� Moderate diffuse volume loss moderate leukoaraiosis
�� � � ���EKG:�NSR 83 bpm, QTc 415 MS
#Chronic memory impairment�undiagnosed�moderate
-Patient oriented to name and place extremely forgetful cannot recall events of today
#New Depression
Symptoms seem to occur in the a.m.
-No current suicidal ideation
-Recommend follow-up with PCP, has crisis number
#COPD�no acute exacerbation
�- no current med
#Scleroderma hx
#Hx alpha trypsin deficiency
#Osteoporosis
Continue ibandronate monthly, vitamin D3 daily
DVT prophylaxis
SCDs
�Total time spent to see the patient, examine the patient on the floor, review data and lab results, discuss treatment plan with the patient, , radiologist, nursing staff around 55 minutes
Anticipated Discharge: Within 24 hours
Subjective/Interval History
-
Date of Service: June 02, 2023
No pain issues
no chest pain or sob
Objective Data
-
Labs:
Laboratory Results
06/02/23
06:32
WBC 7.9
Hgb 12.0
Hct 36.8 L
Plt Count 239
Sodium 141
Potassium 4.5
Chloride 104
Carbon Dioxide 29
BUN 21 H
Creatinine 0.7
Glucose 92
Calcium 8.8
Vital Signs:
Vital Signs
Temp Pulse Resp BP Pulse Ox
97.8 F 78 18 134/59 98
06/02/23 11:11 06/02/23 11:11 06/02/23 11:11 06/02/23 11:11 06/02/23 11:11
I&O
06/01/23 06/02/23 06/03/23
06:59 06:59 06:59
Intake Total 240 / 240 880 / 880
Balance 240 / 240 880 / 880
[2023-06-02 15:58] VITALS: BP 143/52
[2023-06-02] MEDS: LIPITOR 40 MG PO (17:11)
[2023-06-02] MEDS: MELATONIN 5 MG PO (22:41)
[2023-06-02 23:40] VITALS: BP 146/68
[2023-06-03 07:00] VITALS: BP 141/69
[2023-06-03] MEDS: ASPIR LOW (ENTERIC COATED) 81 MG PO (07:10)
[2023-06-03] MEDS: VITAMIN D3 (cholecalciferol) 50 MCG PO (07:10)
[2023-06-03] MEDS: B COMPLEX w/VITAMIN C 1 CAPLET PO (07:10)
--- NOTE | 2023-06-03 11:34 | W.PN.NEURO.1 ---
Today's Communication / Plan
-
.
Subjective/Objective
Subjective Data
Date of Service: June 03, 2023
24-hour events: Normotensive, afebrile.� Ms. Mayo reports no complaints.
Brain MRI with maritza(06/02/2023)-numerous small foci of increased FLAIR signal throughout, including a small focus in the right cerebellar hemisphere , a small focus within the region of the left anterior thalamus/posterior limb of the left internal
capsule, and the lesion within the right frontal lobe�' which appear to have a thin peripheral rim of enhancement'.
LDL 108, hemoglobin A1c�5.4
CRP�normal
PMH: scleroderma, Alpha-1 antitrypsin deficiency/COPD, osteoporosis, vitamin D deficiency,
PSH: R TKA, tonsillectomy
SH: , retired, non-smoker,
FH: [place] disease in maternal uncles
All:NKDA
ROS:Constitutional: Negative. Negative for chills, fever and unexpected weight change.
HENT: Positive for hearing chronic impairment.
Eyes: Negative. Negative for photophobia, pain and visual disturbance.
Respiratory: Negative for cough, choking and shortness of breath.
Cardiovascular: Negative for chest pain, palpitations and leg swelling.
Gastrointestinal: Negative for abdominal pain and vomiting.
Endocrine: Negative. Negative for cold intolerance.
Genitourinary: Negative for dysuria, flank pain and urgency.
Musculoskeletal: Positive for right knee pain.
Skin: Negative for rash.
Allergic/Immunologic: Negative. Negative for immunocompromised state.
Neurological: Positive for short-term memory change, trouble finding the right words.
Psychiatric/Behavioral: Negative for behavioral problems, confusion and hallucinations.
�
�
General: Well developed. In no acute distress.
Cardio: Regular rate and rhythm without murmur. Extremities are without cyanosis or edema.
Neuro:
Mental Status: Alert, oriented to person, place, month, year.� Mild expressive aphasia.� Normal attention and recall.� Good fund of knowledge. Follows complex requests across the midline.� Comprehension, naming, and repetition intact.
Cranial Nerves:� L>R exocoria on primary gaze. Pupils are equally round and reactive to light.� EOMs full, except for L adduction.� Visual sorto full to confrontation.� No ptosis.� No nystagmus.� V1-V3 intact to light touch and pinprick
bilaterally, symmetric.� Face symmetric.� Impaired hearing AU.� The palate elevated well.� SCMs and traps 5/5.� Tongue midline.� No dysarthria.
Motor:� � � � Normal bulk and tone.� No pronator or arm drift.� Strength 5/5 throughout. No clonus.
Reflexes: � � � � � � 3+ throughout the upper extremities and knees. � Plantar responses flexor bilaterally.� As 2 g bilaterally.
Sensory: � � Normal vibration at the toes
Coordination: No dysmetria or tremor.�
Gait: � � � � � deferred
Assessment and Plan:
�
�I.� MARIONETTE PERFORMER embolic phenomena. Differential diagnosis includes vascular versus neoplastic less likely infectious etiology
II.� MCI with bifrontal atrophy.
III.� Multifactorial encephalopathy
-Fall precautions
-Continue aspirin 81 mg QD
-Cardiology consult LEILANI/loop monitoring
-CT chest, abdomen and pelvis
-DVT prophylaxis
I personally reviewed all radiology and labs along with past medical records pertinent to current medical problems. Total time spent in patient care is 35 minutes.
�
Objective Data
Vital Signs
Temp Pulse Resp BP Pulse Ox
36.6 C 77 16 141/69 96
06/03/23 07:00 06/03/23 07:00 06/03/23 07:00 06/03/23 07:00 06/03/23 07:00
Lab Results
06/02/23 06:32
06/02/23 06:32
Sodium 141 mmol/L (135-145) 06/02/23 06:32
Potassium 4.5 mmol/L (3.5-5.1) 06/02/23 06:32
BUN 21 mg/dl (7-17) H 06/02/23 06:32
Glucose 92 mg/dl (70-99) 06/02/23 06:32
Calcium 8.8 mg/dl (8.4-10.2) 06/02/23 06:32
LDL Cholesterol, Calc 108 mg/dl 06/01/23 06:25
Vitamin B12 641 pg/ml (937-931) 06/02/23 06:32
Patient Allergies
No Known Allergies Allergy (Verified 12/23/19 11:42)
Home Medications
-
Home Medications
ascorbic acid (vitamin C) 500 mg tablet (Vitamin C) 500 mg PO DAILY Supplement 05/31/23
aspirin 81 mg tablet,delayed release 81 mg PO DAILY Blood Clot Prevention/Tx 05/31/23
cholecalciferol (vitamin D3) 50 mcg (2,000 unit) tablet (Vitamin D3) 50 mcg PO DAILY Supplement 05/31/23
ibandronate 150 mg tablet 150 mg PO MONTHLY malignancy 05/31/23
ondansetron HCl 4 mg tablet 4 mg PO DAILY PRN nausea 05/31/23
vitamin B complex 1 tab PO DAILY Supplement 05/31/23
--- NOTE | 2023-06-03 12:28 | W.PN.HOSP.TC ---
Today's Communication/Plan
-
.
Assessment / Plan
Assessment / Plan
Physical Exam
General: Comfortable and Conversant; No Pain, Fever or Chills
HEENT: Normocephalic, Anicteric, PERRLA and [place] Conjunctivae
Respiratory: Clear; No Wheezes, Rales or Rhonchi
Cardiac: S1/S2
Breast: no lump/ tenderness or nipple discharge
GI: Soft, Non Tender, Non Distended,
Rectal: Deferred by Provider
Genito-urinary: NO Chin
Musculoskeletal: No Clubbing, No Cyanosis and No Edema
Skin: Warm and Dry; No Rash
Neuro: Awake, Alert, Oriented (To name and confused about dates, time of events, place states she has memory impairment), she followed commands.
Psych: Calm, pleasant.
#�Non specific complaints of nausea/ dizziness
Differential diagnosis includes vascular versus neoplastic less likely infectious etiology
- She denies dizziness at present time.
-MRI brain was reviewed with radiologist, multiple rounded foci, small, which appear to have a thin peripheral rim of enhancement. One of these lesions in the right frontal region has associated white matter edema. DDX metastatic disease/ atypical
presentation of multiple foci of acute to subacute infarction.
-Continue aspirin 81 mg daily pt takes daily
-Lipid profile showed total cholesterol 182, LDL 108, HDL 58, triglyceride 80. HgbA1c 5.4
-Meclizine 25 mg as needed dizziness 3 times daily
Scan of chest, abdomen, pelvis to rule out primary cancer?
Cardiology evaluation for LEILANI
-Consult PT/OT/case management
Appreciate neurology and cardiology input
# Confusion over night
could be related to underlying cognitive impairment/dementia?
will monitor
med sitter
she was alert this morning, followed commands.
#Chronic memory impairment�undiagnosed�moderate
-Patient oriented to name and place extremely forgetful cannot recall events of today
#New Depression
Symptoms seem to occur in the a.m.
-No current suicidal ideation
-Recommend follow-up with PCP, has crisis number
#COPD�no acute exacerbation
�- no current med
#Scleroderma hx
#Hx alpha trypsin deficiency
#Osteoporosis
Continue ibandronate monthly, vitamin D3 daily
DVT prophylaxis
SCDs
�Total time spent to see the patient, examine the patient on the floor, review data and lab results, discuss treatment plan with the patient, , radiologist, nursing staff around 57 minutes
Anticipated Discharge: 24 - 48 hours
Subjective/Interval History
-
Date of Service: June 03, 2023
No headache
no abd pain
no chest pain
nurse, confusion over night
Objective Data
-
Vital Signs:
Vital Signs
Temp Pulse Resp BP Pulse Ox
97.9 F 77 16 141/69 96
06/03/23 07:00 06/03/23 07:00 06/03/23 07:00 06/03/23 07:00 06/03/23 07:00
I&O
06/02/23 06/03/23 06/04/23
06:59 06:59 06:59
Intake Total 880 / 880 620 / 620
Balance 880 / 880 620 / 620
--- NOTE | 2023-06-03 14:58 | CON.CAR ---
Consultation
Consultation Request
Date/Time Consultation Requested: 06/03/2023 at 0930
Date/Time Consultation Performed: 06/03/2023 at 1100
Requesting Provider: Debbie Keith MD
Performing Provider: Yuniel Nick DO
Reason for Consultation: Dizziness, TIA
Medical History
-
Chief Complaint: Dizziness
History of Present Illness:
Patient is a pleasant 78-year-old female with a past medical history significant for scleroderma, alpha-1 antitrypsin deficiency, COPD, osteoporosis, vitamin D deficiency, depression/anxiety who presented with worsening/intermittent dizziness and
nausea and underwent evaluation for stroke. Patient was noted on brain MRI with gadolinium on 06/02/2023 to have numerous small foci of increased FLAIR signal throughout including a small focus in the right cerebellar hemisphere and a small focus
within the region of left anterior thalamus/posterior limb of the left anterior capsule and lesion within the right frontal lobe with peripheral rim enhancement commented by radiology as possible metastatic disease cannot rule out embolus (possibly
but less likely infectious). In discussion with patient, she reports that she has intermittent dizziness when changing position. She currently reports that her dizziness has resolved. Patient denies any chest pain, shortness of breath,
lightheadedness, new dizziness, near-syncope, syncope, PND, orthopnea, edema, or weakness. Patient family prescribed meclizine as needed. Patient denies any prior cardiovascular evaluation or workup. EKG performed in the emergency department
demonstrates sinus rhythm possible septal infarct cited on or before January [address]-T abnormality, poor quality overall however.
Past Medical History
Past Medical History: Other (Scleroderma, alpha-1 antitrypsin deficiency, COPD, osteoporosis, vitamin D deficiency, depression/anxiety)
Past Surgical History: Orthopedic (Right knee)
Social History
Tobacco: Former Smoker
Alcohol: None
Drug: None
Personal:
Living: With Family
Family History
Family History: Reviewed & Not Pertinent
Allergies / Home Medications
Allergy/AdvReac Type Severity Reaction Status Date / Time
No Known Allergies Allergy Verified 10/13/20 11:42
Medication Instructions Recorded Confirmed Type
ascorbic acid (vitamin C) 500 mg 500 mg PO DAILY Supplement 05/31/23 05/31/23 History
tablet (Vitamin C)
aspirin 81 mg tablet,delayed 81 mg PO DAILY Blood Clot 05/31/23 05/31/23 History
release Prevention/Tx
cholecalciferol (vitamin D3) 50 50 mcg PO DAILY Supplement 05/31/23 05/31/23 History
mcg (2,000 unit) tablet (Vitamin
D3)
ibandronate 150 mg tablet 150 mg PO MONTHLY malignancy 05/31/23 05/31/23 History
ondansetron HCl 4 mg tablet 4 mg PO DAILY PRN nausea 05/31/23 05/31/23 History
vitamin B complex 1 tab PO DAILY Supplement 05/31/23 05/31/23 History
Review of Systems
-
History Source: Patient
Constitutional: No Symptoms
EENT: No Symptoms
Respiratory: No Symptoms
Cardiac: No Symptoms
Abdomen/GI: No Symptoms
: No Symptoms
Musculoskeletal: No Symptoms
Skin: No Symptoms
Neurological: Dizzy
Endocrine: No Symptoms
Hematologic/Lymphatic: No Symptoms
Physical Exam
Vital Signs
Temp Pulse Resp BP Pulse Ox
97.9 F 77 16 141/69 96
06/03/23 07:00 06/03/23 07:00 06/03/23 07:00 06/03/23 07:00 06/03/23 07:00
Lab Results
06/02/23 06:32
06/02/23 06:32
Physical Exam
General: No Apparent Distress, Comfortable and Other (Cachectic appearing)
HEENT: Normocephalic, Anicteric and Moist Mucous Membranes
Respiratory: Clear, Non Labored Respirations and Other (No wheezes, rhonchi, or crackles)
Cardiac: S1/S2, Regular Rhythm and Other (No murmur, rub, gallop, or peripheral edema)
GI: Soft, Non Tender, Non Distended and Normal Bowel Sounds
Musculoskeletal: No Clubbing, No Cyanosis and No Edema
Skin: Warm and Dry
Neuro: AO x 3 and Nonfocal/Grossly Intact
Impression / Plan
-
Carotid ultrasound 06/01/2023: Calcified carotid bulb plaque bilaterally right greater than left, measurement suggestive of less than 50% stenosis on each side as per modified Society of radiologist and ultrasound consensus criteria. No significant
progression as compared to prior study by velocity criteria.
Brain MRI with contrast 06/02/2023: Multiple rounded foci, small, which appeared to have a thin peripheral rim of enhancement, 1 of these lesions is in the right frontal region associated with white matter edema. Findings are felt to be suspicious
for metastatic disease, main differential consideration would be atypical presentation of multiple foci of acute/subacute infarction. Multiple cerebral septic emboli could be considered based on imaging findings.
.
TTE 05/2013: Normal LV/RV; LVEF 55 to 60%; mild MR, mild TR, intra-atrial septum intact with no evidence of shunting by color-flow
.
PCP: Sindhu Crouch MD
Cardiology: None
Assessment:
*Dizziness, unclear etiology, concern for TIA, no further symptoms
� Brain MRI concerning for multiple foci possibly metastatic disease versus vascular phenomenon; less likely septic emboli
� Patient not on telemetry at this time
� EKG sinus rhythm without ST-T abnormality
� No prior history of arrhythmia or A-fib
� Placed on aspirin, statin by primary service
� Patient afebrile, no white count, no reported fever or chills
*Scleroderma
*Alpha-1 antitrypsin deficiency
*COPD, no acute exacerbation
*Osteoporosis
*Vitamin D deficiency
*Depression/anxiety
Recommendations:
� 2D echocardiogram to assess cardiac size, shape, function, and valvular anatomy in the setting of dizziness
� Recommend assessment of orthostatic vitals
� Place patient on telemetry for arrhythmia monitoring
� EKG in a.m.
� Recommend further evaluation by primary/neurology for possible etiologies for questionable metastatic disease
Data Reviewed
-
EKG: Tracing Personally Visualized and interpreted (Sinus rhythm without ST-T abnormality)
Radiology: Report Reviewed by me
CT Scan: Report Reviewed by me
Ultrasound: Report Reviewed by me
MRI: Report Reviewed by me
Medical Tests (Nuc Med, Echo etc): Report Reviewed by me
Labs: Labs Reviewed by me
Total Time Spent with Patient (in minutes): 55
[2023-06-03 15:00] VITALS: BP 120/75; BP 135/70; BP 147/72; PULSE 80; PULSE 85; PULSE 987
--- NOTE | 2023-06-03 16:27 | CM ---
Attempted to complete IA.
Patient with some confusion.
Patient lives with spouse in apt with no elevator access.
Per patient no assistive devices.
Patient does not drive.
Patient has not had VN.
PCP: Dr Crouch
Pharmacy: [facility].
TC to patients spouse and left , unable to confirm above information.
Left department phone number.
Will need to review SOTO form with spouse.
[2023-06-03] MEDS: LIPITOR 40 MG PO (17:28)
[2023-06-03 19:25] VITALS: BP 154/76
[2023-06-03] MEDS: MELATONIN 5 MG PO (22:59)
[2023-06-03 23:35] VITALS: BP 153/72
[2023-06-04 03:44] VITALS: BP 128/72
[2023-06-04 06:21] LABS: Hematocrit 37.3 % (37.0-47.0); Hemoglobin 12.1 g/dL (12.0-16.0); Mean Corp Hgb Conc. 32.4 g/dL (33.0-37.0); Mean Corpuscular Hgb 30.3 pg (27.0-31.0); Mean Corpuscular Volume 93.3 fL (81.0-99.0); Mean Platelet Volume 10.2 fL (7.4-10.4); Platelet Count 228 10^3/uL (130-400); White Blood Cell Count 7.8 10^3/uL (4.8-10.8)
[2023-06-04 06:43] LABS: ALT (SGPT) 16 U/L (0-35); AST (SGOT) 28 U/L (14-36); Albumin 3.7 g/dl (3.5-5.0); Alkaline Phosphatase 61 U/L (38-126); Blood Urea Nitrogen 15 mg/dl (7-17); Carbon Dioxide 30 mmol/L (22-30); Chloride 103 mmol/L (98-107); Estimated Creatinine Clearance 54 ml/min; Glucose 87 mg/dl (70-99); Potassium 4.1 mmol/L (3.5-5.1); Sodium 137 mmol/L (135-145); Total Bilirubin 0.5 mg/dl (0.2-1.3); Total Protein 6.6 g/dl (6.3-8.2); eGFR > 60.00
[2023-06-04 07:54] VITALS: BP 165/70
--- NOTE | 2023-06-04 08:22 | W.PN.NEURO.1 ---
Addendum entered and electronically signed by Daniel Del Cid MD 06/04/23 12:53:
Follow-up I saw and evaluated the patient I reviewed the note by Marion Herrera agree with the following,
78-year-old woman presenting the hospital with dizziness and nausea and found to have abnormal brain MRI. Subsequent CT scan of the chest abdomen pelvis had findings very suspicious for lung cancer making the brain MRI findings almost certainly due
to metastatic disease. Patient feels okay today denies nausea and dizziness currently she does feel overwhelmed with the new cancer diagnosis denies dyspnea at this time.
Neurologic examination shows some mild confusion with complex topics and obeying complex commands. Otherwise normal cranial nerves and motor function.
Carotid ultrasound shows carotid plaque but less than 50% stenosis bilaterally
Assessment: Most likely lung cancer causing metastatic disease to the brain, the symptoms of nausea and dizziness may or may not be due to the brain metastases and this may also be causing some mild confusion.
Recommendations
-Given the history of carotid plaque and less than 50% stenosis would continue her aspirin which she takes at home, from my perspective it is acceptable to hold for any necessary procedures required for her cancer diagnosis
-No need for LEILANI or cardiac Linq monitor
-Can stop NIH checks would continue neurologic checks
-Not going to recommend steroids due to minimal edema from brain metastasis
-Proceed with workup for metastatic disease
-Minimize sedating medications
Will follow peripherally call questions or concerns
Original Note:
Today's Communication / Plan
-
.
Neuro Assessment/Plan
Assessment
This is a 78-year-old female who presented to on May 31, 2023 with dizziness and nausea.
-CT Head 05/31/23: There is no definite acute intracranial process however the area of asymmetric decreased attenuation in the anterior right frontal lobe is age indeterminant and a subacute infarct cannot be excluded.� MRI would be much more
sensitive in this regard. There is no hemorrhage. Moderate diffuse volume loss. Moderate leukoaraiosis.
-MRI brain 06/02/23: Unusual MR findings. See above discussion for description of multiple rounded foci, small, which appear to have a thin peripheral rim of enhancement. One of these lesions in the right frontal region has associated white matter
edema. Findings are felt to be suspicious for metastatic disease. Main differential consideration would be atypical presentation of multiple foci of acute to subacute infarction. Multiple cerebral septic emboli could be considered based on imaging
findings, the patient does not seem to have signs suggesting infection on review of notes from [facility].
-CT Chest/abd/pelvis: There is a mass within the right upper lobe of the lung which very likely represents lung carcinoma. This finding would suggest that findings on MRI of the brain are due to metastatic disease from lung carcinoma. Multiple small
pulmonary nodules within both lungs, likely pulmonary metastatic nodules. Low-density hepatic lesions, which are likely hepatic metastatic disease. 2 well-defined homogeneous cystic masses arising within the tail of the pancreas, the largest having
diameter of 2 cm. Appearance would suggest that these are likely benign cystic masses. Continued imaging follow-up could be performed. Subtle lucent lesion within the left posterior aspect of the T9 vertebral body, just inferior to the endplate. In
this location, this could represent a Schmorl's node, although a small metastatic lesion is also possible. As warranted, consideration for further evaluation with nuclear medicine bone scan.
-Carotid ultrasound 06/01/23: Calcified carotid bulb plaque bilaterally, right greater than left. Measurements suggestive of less than 50% stenosis on each side
-TTE 06/04/23: EF 60-65%. No PFO or cardioembolic source seen. LA volume index within normal range.
I. Concern for primary lung cancer with metastases to the brain, and possibly the liver and spine.
II.� Bilateral carotid artery plaque, <50% stenosis.
III. MCI with bifrontal atrophy.
IV.� Multifactorial encephalopathy
Plan
-Would continue aspirin 81mg daily given carotid stenosis.
-Do not see a need for LEILANI/LINQ monitoring.
-Goal normotension.
-Hematology/oncology evaluation for metastatic workup.
-PT/OT/ST evaluations.
-Continue neurological checks. Discontinue NIHSS monitoring.
-DVT prophylaxis.
-Neurology will follow as-needed, please contact our service with any questions/concerns.
Subjective/Objective
Subjective Data
Date of Service: June 04, 2023
No acute events overnight. Patient reports feeling anxious about figuring out what is going on but currently denies any headache, dizziness, vision changes, speech/swallow difficulty, numbness, weakness, chest pain, palpitations, and shortness of
breath.
Objective Data
Vital Signs
Temp Pulse Resp BP Pulse Ox
98.1 F 89 16 165/70 98
06/04/23 07:54 06/04/23 07:54 06/04/23 07:54 06/04/23 07:54 06/04/23 07:54
Lab Results
06/04/23 05:53
06/04/23 05:53
Sodium 137 mmol/L (135-145) 06/04/23 05:53
Potassium 4.1 mmol/L (3.5-5.1) 06/04/23 05:53
BUN 15 mg/dl (7-17) 06/04/23 05:53
Glucose 87 mg/dl (70-99) 06/04/23 05:53
Calcium 9.0 mg/dl (8.4-10.2) 06/04/23 05:53
LDL Cholesterol, Calc 108 mg/dl 06/01/23 06:25
Vitamin B12 641 pg/ml (239-931) 06/02/23 06:32
Patient Allergies
No Known Allergies Allergy (Verified 12/23/19 11:42)
LDL Level: >70, statin ordered
Review of Systems
-
History Source: Patient
EENT: Negative Blurry Vision, Decreased Vision or Swallowing Difficulty
Respiratory: Negative Cough or Trouble Breathing
Cardiac: Negative Chest Pain or Palpitations
Neuro: Negative Dizzy, Headache, Weakness, Numbness, Ataxia or Speech Problem
Physical Exam
-
General: No Apparent Distress
Eyes: No Ptosis and PERRLA
HEENT: Normocephalic and Atraumatic
Neck: Full Range of Motion
Respiratory: No Dyspnea
GI: Non-distended
Extremities: No Clubbing, No Cyanosis and No Edema
Psych: Anxious
Extended Neurological Exam
Mood & Affect: Anxious
Attention Span & Concentration: Awake, Alert and Interactive
Memory: Unremarkable (AAOx3, slightly forgetful)
Tremor: Hand Tremor Absent and Head Tremor Absent
Speech: Quality Unremarkable, Quantity Unremarkable and Rate of Production Unremarkable
Cranial Nerve II: Left Eye: Pupillary Reactivity Unremarkable, Pupillary Size Unremarkable and Visual Beckman Intact
Cranial Nerve II: Right Eye: Pupillary Reactivity Unremarkable, Pupillary Size Unremarkable and Visual Beckman Intact
Cranial Nerves III, IV, : Extraocular Movement: Extraocular Movement Full in all Directions
Cranial Nerve VIII: Hearing: Unremarkable Hearing to Normal Conversational Volume
Cranial Nerve XII: Tongue Protusion: Midline
Muscle Strength, Overall: Full Throughout
Pronator Drift: No Drift in Upper Extremities and No Drift in Lower Extremities
Coordination: Rghlmy-[id number] Testing Unremarkable
Babinski Sign: Absent Bilaterally
Data Reviewed
-
CT Head: Report Reviewed and Image Reviewed
MRI Head: Report Reviewed and Image Reviewed
Carotid Ultrasound: Report Reviewed
Echocardiogram: Report Reviewed
Labs: Report Reviewed
Lipid Profile: Report Reviewed
HgbA1C: Report Reviewed
Reviewed with: Physician and Patient
Medications
-
Active Medications
Generic Name Dose Route Start Last Admin
Trade Name Freq PRN Reason Stop Dose Admin
Acetaminophen 650 mg 05/31/23 21:36
Acetaminophen 650 Mg Rectal Suppository RECTAL 06/28/23 21:35
Q4HPRN PRN
WEIR, mild pain, or temp >100.4F
Acetaminophen 650 mg 05/31/23 21:36
Acetaminophen 325 Mg Tablet PO 06/28/23 21:35
Q4HPRN PRN
WEIR, mild pain, or temp >100.4F
Aspirin 81 mg 06/01/23 08:00 06/04/23 08:52
Aspirin 81 Mg (Enteric Coated) Tablet PO 06/29/23 07:59 81 mg
DAILY RUFINA Administration
Atorvastatin Calcium 40 mg 06/02/23 18:00 06/03/23 17:28
Atorvastatin (Lipitor) 40 Mg Tablet PO 06/30/23 17:59 40 mg
QPM RUFINA Administration
Cholecalciferol 50 mcg 06/01/23 08:00 06/04/23 08:52
Cholecalciferol (Vitamin D3) 50 Mcg Tablet (2,000 Units) PO 06/29/23 07:59 50 mcg
DAILY RUFINA Administration
Meclizine HCl 12.5 mg 05/31/23 20:21
Meclizine 12.5 Mg Tablet PO 06/28/23 20:20
Q8HPRN PRN
dizziness
Ondansetron HCl 4 mg 05/31/23 21:36
Ondansetron 4 Mg Tablet PO 06/28/23 21:35
DAILYPRN PRN
nausea
Vitamin B Complex/Vitamin C 1 caplet 06/01/23 08:00 06/04/23 08:52
Vitamin B Complex With Vitamin C Caplet PO 06/29/23 07:59 1 caplet
DAILY RUFINA Administration
Home Medications
Medication Instructions Recorded
ascorbic acid (vitamin C) 500 mg 500 mg PO DAILY Supplement 05/31/23
tablet (Vitamin C)
aspirin 81 mg tablet,delayed 81 mg PO DAILY Blood Clot 05/31/23
release Prevention/Tx
cholecalciferol (vitamin D3) 50 50 mcg PO DAILY Supplement 05/31/23
mcg (2,000 unit) tablet (Vitamin
D3)
ibandronate 150 mg tablet 150 mg PO MONTHLY malignancy 05/31/23
ondansetron HCl 4 mg tablet 4 mg PO DAILY PRN nausea 05/31/23
vitamin B complex 1 tab PO DAILY Supplement 05/31/23
[2023-06-04] MEDS: VITAMIN D3 (cholecalciferol) 50 MCG PO (08:52)
[2023-06-04] MEDS: ASPIR LOW (ENTERIC COATED) 81 MG PO (08:52)
[2023-06-04] MEDS: B COMPLEX w/VITAMIN C 1 CAPLET PO (08:52)
[2023-06-04 11:14] VITALS: BP 152/72
--- NOTE | 2023-06-04 11:37 | W.PN.CARDCBS ---
Addendum entered and electronically signed by Jaspreet Gil MD 06/04/23 12:02:
Echocardiogram okay. Sign off.
Original Note:
Today's Communication / Plan
-
No need for LEILANI per neurology
Check echo and if okay will sign off
Impression / Plan
-
Carotid ultrasound 06/01/2023: Calcified carotid bulb plaque bilaterally right greater than left, measurement suggestive of less than 50% stenosis on each side as per modified Society of radiologist and ultrasound consensus criteria. No significant
progression as compared to prior study by velocity criteria.
Brain MRI with contrast 06/02/2023: Multiple rounded foci, small, which appeared to have a thin peripheral rim of enhancement, 1 of these lesions is in the right frontal region associated with white matter edema. Findings are felt to be suspicious
for metastatic disease, main differential consideration would be atypical presentation of multiple foci of acute/subacute infarction. Multiple cerebral septic emboli could be considered based on imaging findings.
.
TTE 05/2013: Normal LV/RV; LVEF 55 to 60%; mild MR, mild TR, intra-atrial septum intact with no evidence of shunting by color-flow
.
PCP: Sindhu Crouch MD
Cardiology: None
Assessment:
Dizziness, unclear etiology, concern for TIA, no further symptoms
Brain MRI concerning for multiple foci possibly metastatic disease versus vascular phenomenon; less likely septic emboli
Scleroderma
Alpha-1 antitrypsin deficiency
COPD, no acute exacerbation
Osteoporosis
Vitamin D deficiency
Depression/anxiety
Recommendations:
Telemetry with no arrhythmias
Discussed with neurology and LEILANI is not needed
MRI with metastatic disease
Will check echocardiogram and if okay will sign off
Progress Note - Director Of Consumer Affairs
Subjective
Date of Service: June 04, 2023
No complaints
Objective
Labs:
06/04/23 05:53
06/04/23 05:53
Labs
Hgb 12.1 g/dL (12.0-16.0) 06/04/23 05:53
Hct 37.3 % (37.0-47.0) 06/04/23 05:53
Plt Count 228 10^3/uL (130-400) 06/04/23 05:53
Sodium 137 mmol/L (135-145) 06/04/23 05:53
Potassium 4.1 mmol/L (3.5-5.1) 06/04/23 05:53
BUN 15 mg/dl (7-17) 06/04/23 05:53
Creatinine 0.6 mg/dL (0.6-1.0) 06/04/23 05:53
Glucose 87 mg/dl (70-99) 06/04/23 05:53
Vital Signs and I&O:
Vital Signs
Temp Pulse Resp BP Pulse Ox
98 F 82 16 152/72 98
06/04/23 11:14 06/04/23 11:14 06/04/23 11:14 06/04/23 11:14 06/04/23 11:14
Vital Signs
Temp Pulse Resp BP Pulse Ox
98 F 82 16 152/72 98
06/04/23 11:14 06/04/23 11:14 06/04/23 11:14 06/04/23 11:14 06/04/23 11:14
Intake & Output
06/02/23 06/03/23 06/04/23 06/05/23
06:59 06:59 06:59 06:59
Intake Total 880 / 880 620 / 620 600 / 600
Balance 880 / 880 620 / 620 600 / 600
Physical Exam
Physical Exam
General: Well developed, well nourished in NAD.
Neck: Supple, no JVD, HJR, carotids +2 B/L, no bruits bilaterally.
Heart: Non displaced PMI, RRR, no murmurs, No S3, S4, no rubs.
Lungs: Clear to auscultation bilaterally, no wheeze, rhonchi, rubs bilaterally,
normal expiratory phase.
Extremities: No clubbing, cyanosis or edema bilaterally.
Neuro: Grossly nonfocal, awake, alert and oriented x3.
--- NOTE | 2023-06-04 14:56 | CM ---
CM following for d/c planning
Met with pt and her at bedside
Confirmed information given on initial assessment
Discussed IMM
CM will continue to follow for d/c needs
Plan - home with assist from family when medically ready
--- NOTE | 2023-06-04 15:07 | W.PN.HOSP.TC ---
Today's Communication/Plan
-
Oncology evaluation
Interventional radiology due to review any lesions to biopsy
Assessment / Plan
Assessment / Plan
Carotid ultrasound 06/01/2023-calcified carotid bulb plaque bilaterally right greater than left less than 50% stenosis.
MRI of the brain suspicious for metastatic disease
Echo 06/04/2023-normal LV size, systolic function. Ejection fraction 60 to 65%. Normal diastolic function. Mild MR no cardioembolic source.
CT of the chest-mass in the right upper lobe of the lung likely represents lung cancer. Multiple small pulmonary nodules within both lungs likely pulmonary metastatic nodules. Low-density hepatic lesions likely hepatic metastases disease. 2
well-defined homogeneous cystic masses within the tail of the pancreas largest 1 to 2 cm likely cystic masses slightly lucent lesion in the left posterior aspect of the T9 vertebral body just inferior to the endplate cannot rule out metastasis
On examination awake alert good strength bilateral lower extremities and upper extremities
Denies any other symptoms.
Cardiovascular system S1-S2 appreciated
Chest clear to auscultation
Abdomen soft and nontender
#�Non specific complaints of nausea/ dizziness
-MRI brain was reviewed with radiologist, multiple rounded foci, small, which appear to have a thin peripheral rim of enhancement. One of these lesions in the right frontal region has associated white matter edema. DDX metastatic disease/ atypical
presentation of multiple foci of acute to subacute infarction.
-Continue aspirin 81 mg daily pt takes daily
-Lipid profile showed total cholesterol 182, LDL 108, HDL 58, triglyceride 80. HgbA1c 5.4
-Meclizine 25 mg as needed dizziness 3 times daily
-No need for steroids per neurology
Consult PT/OT/case management
Appreciate neurology and cardiology input
TME due to the same
# Lung mass and metastasis
I have reached out to interventional radiology to see if they can find a lesion to biopsy
I have also consulted hematology oncology
#Chronic memory impairment�undiagnosed�moderate
-Patient oriented to name and place extremely forgetful cannot recall events of today
# Behavior changes-has been unclear if this is depression-discussed with patient and both want to hold off on any medicines at present.
states that she has a diagnosis now therefore her symptoms can be explained by this.
-No current suicidal ideation
#COPD�no acute exacerbation
�- no current med
#Scleroderma hx
#Hx alpha trypsin deficiency
#Osteoporosis
Continue ibandronate monthly, vitamin D3 daily
#DVT prophylaxis
Add Lovenox
Discussed with at bedside who tells me that she has ' lung cancer.'
Both agreeable for proceeding with further workup.
Anticipated Discharge: 24 - 48 hours
Subjective/Interval History
-
Date of Service: June 04, 2023
Objective Data
-
Labs:
Laboratory Results
06/04/23
05:53
WBC 7.8
Hgb 12.1
Hct 37.3
Plt Count 228
Sodium 137
Potassium 4.1
Chloride 103
Carbon Dioxide 30
BUN 15
Creatinine 0.6
Glucose 87
Calcium 9.0
Total Bilirubin 0.5
AST 28
ALT 16
Alkaline Phosphatase 61
Vital Signs:
Vital Signs
Temp Pulse Resp BP Pulse Ox
98 F 82 16 152/72 98
06/04/23 11:14 06/04/23 11:14 06/04/23 11:14 06/04/23 11:14 06/04/23 11:14
I&O
06/03/23 06/04/23 06/05/23
06:59 06:59 06:59
Intake Total 620 / 620 600 / 600
Balance 620 / 620 600 / 600
[2023-06-04 15:35] VITALS: BP 144/76
--- NOTE | 2023-06-04 16:27 | W.PN.UPDATE ---
Update Note
Progress Note Update
Reviewed with IRAD
Hepatic lesion can be biopsied.
Aspirin placed on hold.
[2023-06-04] MEDS: LOVENOX 40 MG SC (17:03)
[2023-06-04] MEDS: LIPITOR 40 MG PO (17:07)
[2023-06-04 19:12] VITALS: BP 155/74
[2023-06-04 23:20] VITALS: BP 131/73
[2023-06-05] VITALS (11 sets, daily range): BP systolic 93–167; BP diastolic 50–87
[2023-06-05 06:44] LABS: INR 1.06; PT 13.6 Sec (11.4-14.6)
[2023-06-05 06:45] LABS: APTT 30.7 Sec (23.4-35.0)
--- NOTE | 2023-06-05 07:45 | CON.ONC ---
Impression
Impression
Dizziness, progressive memory loss/dementia
[employer] lesions, one with edema
lung mass, suspicious for lung cancer primary, with mets to bilateraly lungs, liver, possibly T9, brain
Plan
Plan
Discussed radiology findings w/ , Oliverio, suspicious for lung cancer in patient w/ prior smoking history
Will start Dex 4mg po bid in light of [employer] edema, to see if symptoms improve. Will likely need eventual rad onc input re: RT.
PPI for GI ppx
DVT ppx after biopsy
Will ask IR to biopsy a liver lesion
Options for treatment of metastatic lung cancer TBD based on final path and performance status, and family/patient wishes
Will follow along
Patient History
History of Present Illness
78 yo F w/ dementia, brought in by w/ c/o dizziness. Similar symptoms in the past, better w/ meclizine. Imaging of the brain suspicious for multiple small [employer] mets, one of which with some associated edema. CT CAP suggests primary lung
cancer, with mets to lungs bilaterally, liver, and possibly T9.
She's unable to give history this am. She's oriented to self only, unaware of where she is or how she got her, the year, who she lives with, or how to use her phone.
I spoke to Oliverio on the phone, who reports some memory loss over the past year, but she's usually much more oriented.
Past-Medical/Surgical History
Past Medical History
Past Medical History: Reports Other
Additional Past Medical History:
COPD, scleroderma, alpha trypsin deficiency, chronic memory impairment,�vertigo
Past Surgical History: Reports Other
Additional Past Surgical History:
Tonsillectomy, right knee arthroscopy
Social History
Tobacco: Former smoker
Alcohol: None
Drug: None
Personal:
Living: With Family ( Oliverio)
Employment: Retired
Family History
Family History: Unable to Obtain
Patient Medication
Medication Instructions Recorded Confirmed Last Taken Type
ascorbic acid (vitamin C) 500 mg 500 mg PO DAILY Supplement 05/31/23 05/31/23 Unknown History
tablet (Vitamin C)
aspirin 81 mg tablet,delayed 81 mg PO DAILY Blood Clot 05/31/23 05/31/23 Unknown History
release Prevention/Tx
cholecalciferol (vitamin D3) 50 50 mcg PO DAILY Supplement 05/31/23 05/31/23 Unknown History
mcg (2,000 unit) tablet (Vitamin
D3)
ibandronate 150 mg tablet 150 mg PO MONTHLY malignancy 05/31/23 05/31/23 05/29/23 History
ondansetron HCl 4 mg tablet 4 mg PO DAILY PRN nausea 05/31/23 05/31/23 05/31/23 History
vitamin B complex 1 tab PO DAILY Supplement 05/31/23 05/31/23 Unknown History
Active Medications
Generic Name Dose Route Start Last Admin
Trade Name Freq PRN Reason Stop Dose Admin
Acetaminophen 650 mg 05/31/23 21:36
Acetaminophen 650 Mg Rectal Suppository RECTAL 06/28/23 21:35
Q4HPRN PRN
WEIR, mild pain, or temp >100.4F
Acetaminophen 650 mg 05/31/23 21:36
Acetaminophen 325 Mg Tablet PO 06/28/23 21:35
Q4HPRN PRN
WEIR, mild pain, or temp >100.4F
Aspirin 81 mg 06/01/23 08:00 06/04/23 08:52
Aspirin 81 Mg (Enteric Coated) Tablet PO 06/29/23 07:59 81 mg
DAILY RUFINA Administration
Atorvastatin Calcium 40 mg 06/02/23 18:00 06/04/23 17:07
Atorvastatin (Lipitor) 40 Mg Tablet PO 06/30/23 17:59 40 mg
QPM RUFINA Administration
Cholecalciferol 50 mcg 06/01/23 08:00 06/04/23 08:52
Cholecalciferol (Vitamin D3) 50 Mcg Tablet (2,000 Units) PO 06/29/23 07:59 50 mcg
DAILY RUFINA Administration
Enoxaparin Sodium 40 mg 06/04/23 18:00 06/04/23 17:03
Enoxaparin Sodium 40 Mg/0.4 Ml Syringe SC 07/02/23 17:59 40 mg
QPM RUFINA Administration
Meclizine HCl 12.5 mg 05/31/23 20:21
Meclizine 12.5 Mg Tablet PO 06/28/23 20:20
Q8HPRN PRN
dizziness
Ondansetron HCl 4 mg 05/31/23 21:36
Ondansetron 4 Mg Tablet PO 06/28/23 21:35
DAILYPRN PRN
nausea
Vitamin B Complex/Vitamin C 1 caplet 06/01/23 08:00 06/04/23 08:52
Vitamin B Complex With Vitamin C Caplet PO 06/29/23 07:59 1 caplet
DAILY RUFINA Administration
Review of Systems
-
Unable to obtain full review of systems at this time due to: Dementia
History Source: Patient and Records
All Other Systems: Not reviewed unless documented
Physical Exam
-
General: Well Developed, Well Nourished, Comfortable and Conversant
HEENT: Negative Jaundice
Cardiology: Normal Sinus Rhythm
Pulmonary: Clear
GI: Soft and Normal Bowel Sounds
Musculoskeletal: No Clubbing, No Cyanosis and No Edema
Extremities: No C/C/E
Neurology: No Lateralizing Symptoms
Skin: Warm and Dry
Hematologic / Lymphatic: No Lymphadenopathy
Psych: Calm and Apparent Dementia
Labs
Lab Results
WBC 7.8 10^3/uL (4.8-10.8) 06/04/23 05:53
RBC 4.00 10^6/uL (4.20-5.40) L 06/04/23 05:53
Hgb 12.1 g/dL (12.0-16.0) 06/04/23 05:53
Hct 37.3 % (37.0-47.0) 06/04/23 05:53
MCV 93.3 fL (81.0-99.0) 06/04/23 05:53
MCH 30.3 pg (27.0-31.0) 06/04/23 05:53
MCHC 32.4 g/dL (33.0-37.0) L 06/04/23 05:53
RDW 13.0 % (11.5-14.5) 06/04/23 05:53
Plt Count 228 10^3/uL (130-400) 06/04/23 05:53
MPV 10.2 fL (7.4-10.4) 06/04/23 05:53
Abs Immat Gran (auto) 0.0 10^3/uL (0-0.05) 06/01/23 06:25
Absolute Neuts (auto) 3.9 10^3/uL (1.4-6.5) 06/01/23 06:25
Absolute Lymphs (auto) 2.4 10^3/uL (1.2-3.4) 06/01/23 06:25
Absolute Monos (auto) 0.6 10^3/uL (0.1-0.6) 06/01/23 06:25
Absolute Eos (auto) 0.2 10^3/uL (0-0.7) 06/01/23 06:25
Absolute Basos (auto) 0.0 10^3/uL (0-0.2) 06/01/23 06:25
Immature Gran % 0.3 % (0-0.5) 06/01/23 06:25
Neutrophils % 54.3 % (42.2-75.2) 06/01/23 06:25
Lymphocytes % 33.7 % (20.5-51.1) 06/01/23 06:25
Monocytes % 8.1 % (1.7-9.3) 06/01/23 06:25
Eosinophils % 3.2 % (0-6) 06/01/23 06:25
Basophils % 0.4 % (0-2) 06/01/23 06:25
Creatinine 0.6 mg/dL (0.6-1.0) 06/04/23 05:53
Vital Signs
Vital Signs
Temp Pulse Resp BP Pulse Ox
97.8 F 78 16 134/82 100
06/05/23 07:11 06/05/23 07:11 06/05/23 07:11 06/05/23 07:11 06/05/23 07:11
[2023-06-05] MEDS: VITAMIN D3 (cholecalciferol) 50 MCG PO (08:17)
[2023-06-05] MEDS: DECADRON 4 MG PO ×2 (08:17→19:22)
[2023-06-05] MEDS: B COMPLEX w/VITAMIN C 1 CAPLET PO (08:17)
[2023-06-05] MEDS: PROTONIX 40 MG PO (08:17)
--- NOTE | 2023-06-05 08:36 | PN.CDI ---
CDI
- -
CDI:
Physician Documentation Request
Admit Date: 06/03/23 13:38
Dear Doctor Gabriela,
Patient admitted with suspicion for malignancy.
Please review the following and provide your response in the progress notes.
Clinical Indicators:
Height: 5' 5'
Weight: 99 lbs
BMI:16.6
If possible, please provide an associated diagnosis related to the abnormal BMI, such as:
Underweight
Cachectic
BMI is not significant
Other
BMI < or = to 19.9
Underweight
Weight Loss
Cachectic
Anorexia
Use of terms such as suspected, likely, concern for, or probable (associated with a specific diagnosis that is being evaluated, monitored, or treated as if it exists) are acceptable and can be coded in the inpatient setting, when documented at the
time of discharge.
Thank you,
Ailyn Encinas RN, BSN
CDI Specialist
Available via [place] text
Please use your independent medical judgment in providing your response.
--- NOTE | 2023-06-05 15:22 | W.PN.HOSP.TC ---
Today's Communication/Plan
-
Liver biopsy
Hold Lovenox tonight
Assessment / Plan
Assessment / Plan
Carotid ultrasound 06/01/2023-calcified carotid bulb plaque bilaterally right greater than left less than 50% stenosis.
MRI of the brain suspicious for metastatic disease
Echo 06/04/2023-normal LV size, systolic function. Ejection fraction 60 to 65%. Normal diastolic function. Mild MR no cardioembolic source.
CT of the chest-mass in the right upper lobe of the lung likely represents lung cancer. Multiple small pulmonary nodules within both lungs likely pulmonary metastatic nodules. Low-density hepatic lesions likely hepatic metastases disease. 2
well-defined homogeneous cystic masses within the tail of the pancreas largest 1 to 2 cm likely cystic masses slightly lucent lesion in the left posterior aspect of the T9 vertebral body just inferior to the endplate cannot rule out metastasis
On examination awake alert good strength bilateral lower extremities and upper extremities
Denies any other symptoms.
Cardiovascular system S1-S2 appreciated
Chest clear to auscultation
Abdomen soft and nontender
#�Non specific complaints of nausea/ dizziness
-MRI brain was reviewed with radiologist, multiple rounded foci, small, which appear to have a thin peripheral rim of enhancement. One of these lesions in the right frontal region has associated white matter edema. DDX metastatic disease/ atypical
presentation of multiple foci of acute to subacute infarction.
-Continue aspirin 81 mg daily pt takes daily-Holding for Biopsy
-Lipid profile showed total cholesterol 182, LDL 108, HDL 58, triglyceride 80. HgbA1c 5.4
-Meclizine 25 mg as needed dizziness 3 times daily
-No need for steroids per neurology, but started per Heme /Onc
Consult PT/OT/case management
Appreciate neurology and cardiology input
TME due to the same- better
# Lung mass and metastasis
Biopsy awaited
#Chronic memory impairment�undiagnosed�moderate
-Patient oriented to name and place extremely forgetful cannot recall events of today
# Behavior changes-has been unclear if this is depression-discussed with patient and both want to hold off on any medicines at present.
states that she has a diagnosis now therefore her symptoms can be explained by this.
-No current suicidal ideation
#COPD�no acute exacerbation
�- no current med
#Scleroderma hx
#Hx alpha trypsin deficiency
#Osteoporosis
Continue ibandronate monthly, vitamin D3 daily
#DVT prophylaxis
Add Lovenox
D/W at bed side
D/W Heme Onc
Anticipated Discharge: Within 24 hours
Subjective/Interval History
-
Date of Service: June 05, 2023
Objective Data
-
Labs:
Laboratory Results
06/05/23
06:03
PT 13.6
INR 1.06
APTT 30.7
Vital Signs:
Vital Signs
Temp Pulse Resp BP Pulse Ox
98.1 F 89 18 142/82 98
06/05/23 11:13 06/05/23 11:13 06/05/23 11:13 06/05/23 11:13 06/05/23 11:13
I&O
06/04/23 06/05/23 06/06/23
06:59 06:59 06:59
Intake Total 600 / 600 1380 / 1380
Balance 600 / 600 1380 / 1380
[2023-06-05] MEDS: LIPITOR 40 MG PO (17:54)
[2023-06-05] MEDS: ZOFRAN 4 MG PO (18:07)
[2023-06-05] MEDS: ANTIVERT 12.5 MG PO (18:07)
[2023-06-05] MEDS: TYLENOL 650 MG PO (18:10)
[2023-06-05] MEDS: ROXICODONE 5 MG PO (18:21)
--- NOTE | 2023-06-05 18:24 | PTCARENOTE ---
received back from IR. complaints of lightheadedness, dizzyness and pain. Received x1 order for oxycodone, given. Also medicated w/ tylenol, zofran, antivert. Bandaid to right upper abd intact.
--- NOTE | 2023-06-06 03:28 | DOWNTIME ---
There was a [employer] Downtime on 06/06/2023 from 0100 to 06/06/2023 at 0322. Downtime documentation of patient's care, including medication administrations, has been reconciled in the electronic record per guidelines. Refer to the
patient's paper chart under the miscellaneous tab to see printed paper medication records and downtime forms.
--- NOTE | 2023-06-06 06:51 | W.PN.ONC2 ---
Today's Communication / Plan
-
S/P liver biopsy. Spoke again with Oliverio. Initially mentioned path back and positive (erroneously). Then corrected statement that it is still pending but the radiographs are c/w cancer. I apologized to both for mistakenly confirming
path back before I had confirmatory data (patient in adjacent room has path back and I confused the 2 patients). At end, they seems satisfied but as she has underlying dementia not sure her long-term comprehension. hoping to take her home
JUSTYNA Will need outpt oncology follow up. Office alerted.
Impression
Impression
Right upper lobe lung mass, suspicious for lung cancer primary, with mets to bilateral lungs, liver, possibly T9, brain
Dizziness, progressive memory loss/dementia
Plan
Plan
Discussed radiology findings w/ , Oliverio, suspicious for lung cancer in patient w/ prior smoking history (quit 50 years ago)
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 Will likely need eventual rad onc input re: RT.
S/P IR to biopsy of liver lesion yesterday. Path pending
Options for treatment of metastatic lung cancer TBD based on final path and performance status, and family/patient wishes
Will follow along
Subjective/Objective
Chief Complaint
ACS Heme Onc
Subjective
Baseline confused. Getting neuro video observation. S/P liver Bx.
Vital Signs:
Vital Signs
Temp Pulse Resp BP Pulse Ox
98.4 F 84 16 123/71 97
06/05/23 23:06 06/05/23 23:06 06/05/23 23:06 06/05/23 23:06 06/05/23 23:06
Lab Results:
Laboratory Data
WBC 7.8 10^3/uL (4.8-10.8) 06/04/23 05:53
Hgb 12.1 g/dL (12.0-16.0) 06/04/23 05:53
Plt Count 228 10^3/uL (130-400) 06/04/23 05:53
PT 13.6 Sec (11.4-14.6) 06/05/23 06:03
INR 1.06 06/05/23 06:03
APTT 30.7 Sec (23.4-35.0) 06/05/23 06:03
eGFR > 60.00 06/04/23 05:53
Physical Exam
HEENT: Other (chronic right eye strabismus); No Jaundice
Cardiology: S1 and S2
Pulmonary: Clear
GI: Soft
Extremities: No C/C/E
[2023-06-06 07:30] VITALS: BP 148/74
--- NOTE | 2023-06-06 08:35 | PTCARENOTE ---
Patient refused medications from this RN. Stated 'If I wanted to I would take those. Leave them here so I can have proof of the pharmaceuticals you're trying to give me.' Was verbally agitated. Attempted to reorient. Removed medications from
room although patient adamant that RN leave them.
[2023-06-06] MEDS: PROTONIX PO (08:36)
[2023-06-06] MEDS: VITAMIN D3 (cholecalciferol) PO (08:36)
[2023-06-06] MEDS: B COMPLEX w/VITAMIN C PO (08:36)
[2023-06-06] MEDS: DECADRON PO (08:36)
[2023-06-06 09:10] LABS: Hemoglobin 11.6 g/dL (12.0-16.0)
[2023-06-06 11:38] VITALS: PULSE 100
[2023-06-06 11:45] VITALS: BP 124/70
[2023-06-06 13:14] LABS: Glucose - Point of Care 140 mg/dl (70-99)
--- NOTE | 2023-06-06 13:15 | PTCARENOTE ---
Patient's son notified this RN that patient had coughed up blood. This RN found a bloody napkin in [facility] can. Notified attending.
[2023-06-06] MEDS: DECADRON 4 MG PO (13:20)
--- NOTE | 2023-06-06 13:23 | CON.PUL ---
Consultation
Consultation Request
Date/Time Consultation Requested: 06/06/23
Date/Time Consultation Performed: 06/06/23
Medical History
-
History of Present Illness:
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 Adm 05/31/23 to rule out CVA, had MRI showing new brain lesions most concerning for metastatic disease.
She underwent further w/u on chest imaging showing new RUL mass, largest dimension 3.3cm with disease in liver. She underwent liver biopsy on 06/05/23 with path still pending. 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
mostly intermittent. The times she does cough up red sputum, is dime/wallace size. Largest one yet, she produced today was about quarter to silver dollar size. She notes no associated SOB/wheezing/chest tightness.
She had prior PFTs in past showing normal function, last record in 2013. She has never been seen by a tower equipment installer as outpatient.
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 She is not confirmed to have deficiency or manifested lung disease. She has no emphysema noted on her CT.
Family notes that her MS has been progressively worsening with confusion. Their focus primarily in regards to her metastatic disease is to keep her comfortable and not to be aggressive.
Past Medical History
Past Medical History: Other (see list below)
Social History
Tobacco: Former Smoker
Alcohol: None
Drug: None
Family History
Family History: Reviewed & Not Pertinent
Allergies / Home Medications
Allergies
Allergy/AdvReac Type Severity Reaction Status Date / Time
No Known Allergies Allergy Verified 12/23/19 11:42
Home Medications
�Medication �Instructions �Recorded �Confirmed �Last Taken �Type
ascorbic acid (vitamin C) 500 mg 500 mg PO DAILY Supplement 05/31/23 05/31/23 Unknown History
tablet (Vitamin C)
aspirin 81 mg tablet,delayed 81 mg PO DAILY Blood Clot 05/31/23 05/31/23 Unknown History
release Prevention/Tx
cholecalciferol (vitamin D3) 50 50 mcg PO DAILY Supplement 05/31/23 05/31/23 Unknown History
mcg (2,000 unit) tablet (Vitamin
D3)
ibandronate 150 mg tablet 150 mg PO MONTHLY malignancy 05/31/23 05/31/23 05/29/23 History
ondansetron HCl 4 mg tablet 4 mg PO DAILY PRN nausea 05/31/23 05/31/23 05/31/23 History
vitamin B complex 1 tab PO DAILY Supplement 05/31/23 05/31/23 Unknown History
Review of Systems
-
History Source: Patient
All other systems: Negative unless noted
Vitals / Labs / Diagnostic Testing
Vital Signs
Temp Pulse Resp BP Pulse Ox
98.3 F 106 18 124/70 99
06/06/23 11:45 06/06/23 11:45 06/06/23 11:45 06/06/23 11:45 06/06/23 11:45
Lab Data
06/06/23 08:59
06/04/23 05:53
Microbiology
06/04/23 16:36 Blood/Venous Blood Culture - Preliminary
No Growth in 24 hours- Final report to follow
06/04/23 15:33 Blood/Venous Blood Culture - Preliminary
No Growth in 24 hours- Final report to follow
Diagnostic Testing:
Physical Exam
-
HEENT: Normocephalic, Anicteric and Moist Mucous Membranes
Cardiovascular: S1/S2, Regular Rhythm and Peripheral Edema (none)
Respiratory: Clear, Non-Labored Respirations and Other (barrel chested)
GI: Soft, Non Distended and Non Tender
Neurology: Awake, Alert, Oriented (to self and place, confused on her timeline), No Motor Deficits and Other (confused/forgetful)
Skin: Warm and Dry
General: Comfortable, Poor Appetite and Other (thin appearing)
Assessment
-
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 Adm 05/31/23 to rule out CVA, had MRI showing new brain lesions most concerning for metastatic disease.
She underwent further w/u on chest imaging showing new RUL mass, largest dimension 3.3cm with disease in liver. She underwent liver biopsy on 06/05/23 with path still pending. 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
mostly intermittent. The times she does cough up red sputum, is dime/wallace size. Largest one yet, she produced today was about quarter to silver dollar size. We are consulted for eval.
New RUL mass, 2.5 cm x 3.3 cm x 2.2 cm
Hemoptysis
Acute blood loss anemia from #1 and #2
Suspected liver mets s/p IR biopsy 06/05/23
Acute dizziness on presentation r/o CVA, MRI with suspected metastatic disease
Chronic memory impairment
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
Bronchiectasis
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
Varicose veins lower ext
Localized morphea
Osteoporosis
Basal cell carcinoma L side of nose-excision
R chest wall skin lesion, L thigh skin lesion-excision 05/26/02
Scleroderma/systemic sclerosis
Mitral regurgitation
Alopecia
Left knee/cartilage sx 1987
Tonsillectomy
Eye surgery
Former smoker, 30 Pack years, quit >10 years ago
Plan
No oxygen was needed on admission, currently saturating >90% on RA
She has no history of needing O2 at home
Prior history of lung disease is noted including alpha 1 status
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 She is not confirmed to have deficiency or manifested lung disease.
She has no emphysema noted on her CT.
She had prior PFTs in past showing normal function, last record in 2013.
She has never been seen by a tower equipment installer as outpatient.
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
On CT she has new RUL mass measuring up to 3.3cm at largest dimension
This also enters into her airway which is likely the source
Optimal treatment would be to start chemo/rad and shrink tumor, if degree of hemoptysis is mild
If she begins to have copious blood, >150cc then would need to be evaluated at a tertiary center for advanced tumor intervention including cryo/argon treatment
This was reviewed with the family
Continue to quantify
Can initiate ICS BID to see if this helps reduce airways inflammation and hopefully reduce hemoptysis
She can continue this as OP
Family notes that her MS has been progressively worsening with confusion.
MRI showing mets
Their focus primarily in regards to her metastatic disease is to keep her comfortable and not to be aggressive.
She is currently full code
ECHO results reviewed--stable function
She has carotid disease on US
Will need outpatient pulmonary evaluation in our office for PFTs and 6MWT
Reviewed with patient
Smoking history noted--30 pack years, quit >10 years ago
Optimize diet, she appears thin/deconditioned
PT/OT
Discharge planning per team
Diagnostic Data
Chest X-Ray: 06/03/23- No evidence of active cardiopulmonary disease. Mild loss of height of an of the midthoracic vertebra appears new since chest radiograph in 2012. Age of this compression deformity is uncertain, and please correlate with any
localized symptoms.
CT Scan: CAP 06/03/23- There is a mass within the right upper lobe of the lung which very likely represents lung carcinoma. This finding would suggest that findings on MRI of the brain are due to metastatic disease from lung carcinoma. Multiple small
pulmonary nodules within both lungs, likely pulmonary metastatic nodules. Low-density hepatic lesions, which are likely hepatic metastatic disease. 2 well-defined homogeneous cystic masses arising within the tail of the pancreas, the largest having
diameter of 2 cm. Appearance would suggest that these are likely benign cystic masses. Continued imaging follow-up could be performed.
Subtle lucent lesion within the left posterior aspect of the T9 vertebral body, just inferior to the endplate. In this location, this could represent a Schmorl's node, although a small metastatic lesion is also possible. As warranted, consideration
for further evaluation with nuclear medicine bone scan.
MRI brain 06/02/23: Unusual MR findings. See above discussion for description of multiple rounded foci, small, which appear to have a thin peripheral rim of enhancement. One of these lesions in the right frontal region has associated white matter
edema. Findings are felt to be suspicious for metastatic disease. Main differential consideration would be atypical presentation of multiple foci of acute to subacute infarction. Multiple cerebral septic emboli could be considered based on imaging
findings.
Echo: 06/04/23- Normal left ventricular size, wall thickness and systolic function. No regional wall motion abnormalities are seen. LV ejection fraction is 60-65% by volumetric assessment. Normal diastolic function. Mitral valve opens normally.
Mitral annular calcification. Mild mitral regurgitation is seen. Trileaflet aortic valve. Aortic valve opens normally. Aortic sclerosis without stenosis. Mild aortic regurgitation. There is no cardiac embolic source seen. However if clinical
suspicion is high would suggest LEILANI. Since echocardiogram May 28, 2013, there is no significant change.
PFT 05/28/13: FEV1 2.53L 102%, FVC 3.22L 98%, ratio 78. TLC 5.33L 101%, DLCO 92%
Dr Chilel, alpha 1 antitrypsin
PFT's: 2011- FEV1 was 2.67L (105%), FVC was 97% predicted, TLC was 99% predicted, Diffusing capacity was 87% predicted
Impression: Spirometry and lung volumes were normal and the diffusion capacity was mildly reduced.
Since 01/03/2005 the FEV1, VC and TLC have not changed significantly. The diffusion capacity has decreased from 93% predicted to 87% predicted.
Reports and relevant images were personally reviewed.
--- NOTE | 2023-06-06 13:24 | W.PN.HOSP.TC ---
Today's Communication/Plan
-
Patient Has some hemoptysis therefore I will request opinion from pulmonary before making any plans for discharge.
Assessment / Plan
Assessment / Plan
Carotid ultrasound 06/01/2023-calcified carotid bulb plaque bilaterally right greater than left less than 50% stenosis.
MRI of the brain suspicious for metastatic disease
Echo 06/04/2023-normal LV size, systolic function. Ejection fraction 60 to 65%. Normal diastolic function. Mild MR no cardioembolic source.
CT of the chest-mass in the right upper lobe of the lung likely represents lung cancer. Multiple small pulmonary nodules within both lungs likely pulmonary metastatic nodules. Low-density hepatic lesions likely hepatic metastases disease. 2
well-defined homogeneous cystic masses within the tail of the pancreas largest 1 to 2 cm likely cystic masses slightly lucent lesion in the left posterior aspect of the T9 vertebral body just inferior to the endplate cannot rule out metastasis
Hemoptysis
Cardiovascular system S1-S2 appreciated
Chest clear to auscultation
Abdomen soft and nontender
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
#�Non specific complaints of nausea/ dizziness
-MRI brain was reviewed with radiologist, multiple rounded foci, small, which appear to have a thin peripheral rim of enhancement. One of these lesions in the right frontal region has associated white matter edema. DDX metastatic disease/ atypical
presentation of multiple foci of acute to subacute infarction.
-Was on aspirin 81 mg daily pt takes daily-Holding for Hemoptysis
-Lipid profile showed total cholesterol 182, LDL 108, HDL 58, triglyceride 80. HgbA1c 5.4
-Meclizine 25 mg as needed dizziness 3 times daily
-No need for steroids per neurology, but started per Heme /Onc
-TME due to the same- Slightly more confused , likely from Steroids.
# Lung mass and metastasis
Biopsy of the liver lesion done on 06/05/2023
Hemoglobin is stable
#Chronic memory impairment�undiagnosed�moderate
# Behavior changes-has been unclear if this is depression-discussed with patient and both want to hold off on any medicines at present.
states that she has a diagnosis now therefore her symptoms can be explained by this.
-No current suicidal ideation
#COPD�no acute exacerbation
�- no current med
#Scleroderma hx
#Hx alpha trypsin deficiency
#Osteoporosis
Continue ibandronate monthly, vitamin D3 daily
#DVT prophylaxis
Add Lovenox
D/W at bed side
D/W one son at bed side and also Other son Jaime on the phone.
All questions answered
CD of MRI and CT given
Discussed with the family about need for monitoring blood sugars with repeat BMP in 1 week as she is on steroids. They are aware that she may need radiation of the brain lesions. Aware that biopsy need to be back before any additional treatments
can be planned.
Patient Has some hemoptysis therefore I will request opinion from pulmonary before making any plans for discharge.
Spent more than 50 min
Anticipated Discharge: Within 24 hours
Subjective/Interval History
-
Date of Service: June 06, 2023
Objective Data
-
Labs:
Laboratory Results
06/06/23
08:59
Hgb 11.6 L
Vital Signs:
Vital Signs
Temp Pulse Resp BP Pulse Ox
98.3 F 106 18 124/70 99
06/06/23 11:45 06/06/23 11:45 06/06/23 11:45 06/06/23 11:45 06/06/23 11:45
I&O
06/05/23 06/06/23 06/07/23
06:59 06:59 06:59
Intake Total 1380 / 1380 315 / 315 120 / 120
Balance 1380 / 1380 315 / 315 120 / 120
[2023-06-06] MEDS: FLOVENT 220MCG INH (14:08)
--- NOTE | 2023-06-06 15:13 | W.PN.UPDATE ---
Update Note
Progress Note Update
Patient and family adamant that they want to leave.
Advised to quantify hemoptysis and to return if she has more bleeding. She has occasional spotting only per son.
Discussed with pulmonary. Not opposed to discharge.
Will discharge today.
--- NOTE | 2023-06-06 15:15 | W.DS.TRANS ---
Addendum entered and electronically signed by Roderick Ochoa MD 06/07/23 08:29:
Dictation- [id number]
Original Note:
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
-
Discharge Instructions:
Discharge Diagnosis/Procedures Mass in the right upper lobe of the lung,
multiple small pulmonary nodules, low-density
hepatic lesions, 2 cystic masses in the tail of
the pancreas, lesion in the T9 vertebral body,
confusion, underweight, Hemoptysis
Diet As tolerated
Activity As tolerated,With assistance
Driving Restrictions No driving
Blood Work BMP 1 week
Other Services VN
Instructions:
Stand-Alone Forms:
Changes to Home Medications: Yes
Discharge Medications:
DC Medications w/original date entered in [employer]
ascorbic acid (vitamin C) 500 mg tablet (Vitamin C) 500 mg PO DAILY Supplement 05/31/23
aspirin 81 mg tablet,delayed release 81 mg PO DAILY Blood Clot Prevention/Tx 05/31/23
cholecalciferol (vitamin D3) 50 mcg (2,000 unit) tablet (Vitamin D3) 50 mcg PO DAILY Supplement 05/31/23
ondansetron HCl 4 mg tablet 4 mg PO DAILY PRN nausea 05/31/23
vitamin B complex 1 tab PO DAILY Supplement 05/31/23
atorvastatin 40 mg tablet 40 mg PO QPM #30 tabs 06/06/23
dexamethasone 4 mg tablet 4 mg PO Q12 brain lesions #60 tabs 06/06/23
fluticasone 500 mcg-salmeterol 50 mcg/dose blistr powdr for inhalation (Advair Diskus) 1 inh inhalation BID Lung/breathing issues #60 ea 06/06/23
ibandronate 150 mg tablet 150 mg PO MONTHLY other #0 tabs 06/06/23
pantoprazole 40 mg tablet,delayed release 40 mg PO DAILY #30 tabs 06/06/23
Home Medication Changes
new
dexamethasone 4 mg tablet 4 mg PO Q12 brain lesions #60 tabs 06/06/23
fluticasone 500 mcg-salmeterol 50 mcg/dose blistr powdr for inhalation (Advair Diskus) 1 inh inhalation BID Lung/breathing issues #60 ea 06/06/23
pantoprazole 40 mg tablet,delayed release 40 mg PO DAILY #30 tabs 06/06/23
atorvastatin 40 mg tablet 40 mg PO QPM #30 tabs 06/06/23
Pending Results: Yes
Additional Pending Results:
Path
[2023-06-06 15:30] VITALS: BP 156/72
[2023-06-06] MEDS: FLOVENT 220MCG 2 PUFF INH (15:39)
--- NOTE | 2023-06-06 16:13 | PTCARENOTE ---
Patient ready for discharge. IV Removed. Went over instructions with patient's .
== END 2023-06-06 16:49 | disposition home or self-care (01) | DRG 180 ==
LOC: 3 WEST ACU 13:38
PROVIDERS: Clinical Nurse Specialist Family Health; Internal Medicine; Radiology Vascular & Interventional Radiology; ADMITTING PHYSICIAN Hospitalist; ATTENDING PHYSICIAN Hospitalist; CONSULT PHYSICIAN Internal Medicine; CONSULT PHYSICIAN Internal Medicine Cardiovascular Disease; CONSULT PHYSICIAN Psychiatry & Neurology Neurology; EMERGENCY PHYSICIAN Emergency Medicine; FAMILY PHYSICIAN Family Medicine; OTHER PHYSICIAN Internal Medicine Hematology & Oncology
PROC: 0FD03ZX Extraction of Liver, Percutaneous Approach, Diagnostic (ICD-10-PCS; 2023-06-05)
DX: C34.90 Malignant neoplasm of unspecified part of unspecified bronchus or lung (principal); G92.8 Other toxic encephalopathy; D62 Acute posthemorrhagic anemia; F03.94 Unspecified dementia, unspecified severity, with anxiety; F03.93 Unspecified dementia, unspecified severity, with mood disturbance; Z68.1 Body mass index [BMI] 19.9 or less, adult; C79.31 Secondary malignant neoplasm of brain; J44.9 Chronic obstructive pulmonary disease, unspecified; M34.9 Systemic sclerosis, unspecified; Z79.82 Long term (current) use of aspirin; M81.0 Age-related osteoporosis without current pathological fracture; Z87.891 Personal history of nicotine dependence; E88.01 Alpha-1-antitrypsin deficiency; E55.9 Vitamin D deficiency, unspecified; J47.9 Bronchiectasis, uncomplicated; I83.90 Asymptomatic varicose veins of unspecified lower extremity; R63.6 Underweight; F32.A Depression, unspecified
CPT/HCPCS: 88307; 47000; 70450; 70551; 70553; 71046; 71260; 74177; 76942; 80048; 80053; 80061; 80143; 80179; 82607; 82962; 83036; 84443; 85018; 85025; 85027; 85576; 85610; 85652; 85730; 86140; 87040; 88333; 88341; 88342; 92610; 93005; 93306; 93880; 94640; 97116; 97163; 97166; 97530; 97535; 99152; 99153; 99285; A9575; Q9967